=== PATIENT | male | born 1970 | race Two or more races ===

== ENCOUNTER → 2020-10-16 14:12 | Outpatient (BNVA) | payer OTHER, SELFPAY | PROVIDERS: PCP Internal Medicine; Visit Provider Physician Assistant | DX: E66.9 Obesity, unspecified (principal) | CPT/HCPCS: 99202 ==

== ENCOUNTER 2021-09-19 12:59 | Emergency (ER) | payer OTHER, SELFPAY ==
--- NOTE | ~2021-09-19 | XR_ITS ---
EXAMINATION: XR CHEST CLINICAL INFORMATION: Cough. COMPARISON: None TECHNIQUE: 2 views of the chest were obtained. FINDINGS: No significant abnormality is noted involving the heart, lungs, mediastinum, bony thorax or soft tissues. XR/XR chest 2V IMPRESSION: No acute cardiopulmonary process.
[2021-09-19 13:07] VITALS: BP 153/93; PULSE 108; RESP 18; TEMP 36.3; O2SAT 97; BMI 79.6
--- NOTE | 2021-09-19 14:31 | ED_ITS ---
HPI - Asthma General Chief Complaint: Asthma Stated Complaint: ASTHMA Time Seen by Provider: 09/19/21 14:16 Source: patient Mode of arrival: ambulatory Limitations: no limitations History of Present Illness HPI Narrative: 51-year-old male with history of asthma here with complaints of cough, wheezing, headache, runny nose nasal congestion for the last week. Patient tells me he was seen at the walk-in center and given inhaler and allergy medication. He tells me he has been continuing to do this but having continued symptoms. He has had uses nebulizer machine at home last few days. His last use was 11:00 o'clock this morning. He denies any history of hospitalizations or intubations for asthma. He denies any fevers, chills, difficulty breathing, chest pain. Related Data Home Medications Medication Instructions Recorded Confirmed albuterol sulfate mg INHALATION Q4H PRN 10/16/20 10/16/20 albuterol sulfate 90 mcg/actuation 2 puff INHALATION Q4H PRN 10/16/20 10/16/20 aerosol inhaler Previous Rx's Medication Instructions Recorded azithromycin 250 mg tablet See Rx Instructions .ROUTE 09/19/21 .COMPLEX #6 tab prednisone 20 mg tablet 40 mg PO DAILY 5 Days #10 tab 09/19/21 Allergies Allergy/AdvReac Type Severity Reaction Status Date / Time No Known Allergies Allergy Verified 10/16/20 14:34 [No Known Allergies*] Review of Systems Review of Systems: Yes all other systems are reviewed and are negative Constitutional: Constitutional: Reports no additional constitutional complaints, Denies body ache(s), Denies chills, Denies fever(s), Denies headache(s) and Denies weakness Eyes: Eyes: Reports no additional eye complaints and Denies change in vision ENT: Reports system reviewed and no additional complaints, except as documented, Denies dizziness, Denies headache(s), Reports nasal congestion, Reports nasal discharge and Denies neck pain Cardiovascular: Cardiovascular: Reports no additional cardiovascular complaints, Denies chest pain, Denies leg edema and Denies dyspnea Respiratory: Respiratory: Reports no additional respiratory complaints, Reports cough, Denies dyspnea and Reports wheezing Gastrointestinal: Gastrointestinal: Reports no additional gastrointestinal complaints, Denies abdominal pain, Denies diarrhea, Denies nausea and Denies vomiting Genitourinary: Genitourinary: Denies urinary incontinence Musculoskeletal: Musculoskeletal: Reports no additional musculoskeletal complaints, Denies back pain, Denies arthralgias, Denies joint swelling, Denies neck pain, Denies numbness and Denies tingling Integumentary/Breasts: Skin/Breast: Reports system reviewed and no additional complaints, except as docu and Denies rash Neurologic: Reports system reviewed and no additional complaints, except as documented, Denies Abnormal speech present, Denies dizziness, Denies headache(s), Denies numbness, Denies tingling and Denies weakness Allergic/Immunologic: Allergic/Immunologic: Reports wheezing [facility] Past Medical History Attestation statement: The following information was validated with the patient. Source: old records reviewed and nursing notes reviewed Medical History Asthma H/O back injury Obesity (BMI 35.0-39.9 without comorbidity) Surgical History Previous back surgery Family History Family History Father AIDS Mother Liver cancer Diabetes mellitus Sister Fibromyalgia Sister No problems noted. Brother Known medical problems Brother Diabetes mellitus Liver problem Daughter No problems noted. Son No problems noted. Son No problems noted. Social History Social History Alcohol intake: never Advance Directives: Yes Advance Directives Information Provided: Yes Advance Directives on File: No Physical Exam Vital Signs: Vital Signs: Last Vital Signs Temp 97.4 F 09/19/21 13:07 Pulse 104 H 09/19/21 14:48 Resp 20 09/19/21 14:48 BP 153/93 H 09/19/21 13:07 Pulse Ox 97 09/19/21 13:07 BMI result Body Mass Index 79.6 Const: General: cooperative, healthy appearing, comfortable and no acute distress Orientation/consciousness: patient oriented x3 Limitations: no limitations HENMT: Head: Yes normal to inspection Ears: hearing grossly normal bilaterally and TM's normal bilaterally General nose exam: Normal external nose present Face and sinus: Yes normal facial exam Mouth: Normal oral and palatal mucosa present Throat: Yes posterior oropharynx normal, Yes tonsils normal and Yes uvula midline Eyes: General: appearance normal, both eyes and all related structures Pupils: Equal, round and reactive pupils present Neck: Neck: Yes normal visual inspection, Yes full ROM and Yes no lymphadenopathy Chest: Chest palpation & inspection: normal inspection of the chest Resp: Other: Mild expiratory wheezing Prolonged expiration Frequent bronchospastic cough noted. Effort & Inspection: normal respiratory effort Cardio: Rate: regular rate Rhythm: regular rhythm Peripheral pulses: Peripheral pulses 2+ throughout GI: Inspection: Yes normal to inspection Palpation (GI): Soft to palpation and nontender Auscultation: normal bowel sounds Back/Spine/Pelvis: Thoracic/Lumbar Spine: thoracic and lumbar spine normal to inspection Skin: General skin exam: no rashes or lesions noted Neuro: General: patient oriented x3, no focal motor deficits and normal sensation to monofilament Cranial nerves: Yes Equal, round and reactive pupils present Cognition (Neuro): normal cognition Speech: No Abnormal speech present Gait exam (Neuro): Normal gait present Motor exam (neuro): 5/5 motor strength present throughout Extrem: General: Yes normal to inspection Course Course Course Narrative: [age] year old male here with complaints of cough, wheezing, nasal congestion and runny nose last week unrelieved with home albuterol MDI and nebulizer machine. On arrival patient is stable vital signs. He has some mild expiratory wheezing, prolonged expiration is and a frequent bronchospastic cough. Exam otherwise is benign. Check chest x-ray, COVID screen. Will give DuoNeb and p.o. prednisone reassessed 1540-COVID screen is positive. Chest x-ray shows no acute finding. Due to complaints of wheezing with history of asthma will treat with course of prednisone. Patient also reporting productive cough with green sputum so consider underlying bronchitis. Reviewed worrisome signs and symptoms of when to return to the emergency department. Comfortable discharge home. [facility] - Asthma Medical Records Attestation: I reviewed the patient's medical records. Lab Data Attestation: I reviewed the patient's lab results. Labs: Lab Results 09/19/21 Range/Units 15:20 COVID-19 (KRISTEN) Positive A (Negative) COVID-19 Clin Com See Note Imaging Data Chest x-ray: Attestation: I personally reviewed and interpreted this imaging study as follows: Radiologist's impression: [address] [address] XRay Report Signed Patient: Smith Cummings JR MR#: [id number] : 1970 Acct:[id number] Age/Sex: 51 / M ADM Date: 09/19/21 Loc: HO.ED Attending Dr: Ordering Physician: Trish Regalado NP Date of Service: 09/19/21 Procedure(s): XR chest 2V Accession Number(s): [id number] cc: Trish Regalado NP~ EXAMINATION: XR CHEST CLINICAL INFORMATION: Cough. COMPARISON: None TECHNIQUE: 2 views of the chest were obtained. FINDINGS: No significant abnormality is noted involving the heart, lungs, mediastinum, bony thorax or soft tissues. XR/XR chest 2V IMPRESSION: No acute cardiopulmonary process. Discharge Plan Discharge Clinical Impression: Asthma with acute exacerbation, COVID-19 Patient Disposition: Home, Self-Care Instructions: Asthma (ED), COVID-19 (Coronavirus Disease 2019) (ED) Additional Instructions: COVID test +. Quarentine for 10 days Motrin/tylenol for pain or fever as needed Increase fluids, rest Prescriptions: New prednisone 20 mg tablet 40 mg PO DAILY 5 Days Qty: 10 RF: 0 azithromycin 250 mg tablet See Rx Instructions .ROUTE .COMPLEX Qty: 6 RF: 0 No Action albuterol sulfate 90 mcg/actuation HFA aerosol inhaler 2 puff inhalation Q4H PRN (Reason: wheezing) RF: 0 albuterol sulfate 2.5 mg /3 mL (0.083 %) solution for nebulization inhalation Q4H PRN (Reason: wheezing) RF: 0 Referrals: Renato Ramsay MD [Primary Care Provider] - 2 days
[2021-09-19] MEDS: Albuterol/Iprat 2.5/0.5MG 3 ML AMPUL.NEB INHALE (14:43)
[2021-09-19] MEDS: predniSONE 20 MG TABLET 60 MG PO (14:46)
[2021-09-19 14:48] VITALS: PULSE 104; RESP 20; O2SAT 95
[2021-09-19 15:48] LABS: COVID-19 Test Positive (Negative)
== END 2021-09-19 16:09 | disposition home or self-care (01) ==
PROVIDERS: Nurse Practitioner Family; Emergency Provider Emergency Medicine; PCP Internal Medicine
DX: U07.1 COVID-19 (principal); J45.901 Unspecified asthma with (acute) exacerbation
CPT/HCPCS: 36415; 71046; 87635; 94640; 99283; 99284

== ENCOUNTER 2021-12-09 11:52 | Emergency (ER) | payer OTHER, SELFPAY ==
--- NOTE | ~2021-12-09 | XR_ITS ---
EXAMINATION: XR CHEST CLINICAL INFORMATION: Cough and SOB. COMPARISON: None TECHNIQUE: 2 views of the chest were obtained. FINDINGS: No significant abnormality is noted involving the heart, lungs, mediastinum, bony thorax or soft tissues. XR/XR chest 2V IMPRESSION: Unremarkable chest examination.
[2021-12-09 12:58] VITALS: BP 157/93; PULSE 97; RESP 16; TEMP 36.2; O2SAT 96; BMI 36.1
[2021-12-09 13:26] LABS: COVID-19 Test Negative (Negative); IDNOW Serial# 55D5AD1C
--- NOTE | 2021-12-09 14:26 | PC.NURSE ---
Pt reports increase in asthma exacerbations, states he uses an albuterol inhaler and neb. Has not recently used his neb, last inhaler use yesterday. Pt reports history of increasing asthma exacerbations as the weather changes. LS CTA bilaterally, pt speaking in full sentences, skin wd, resp reg and even, no s/sx resp distress at this time, spo2 96% on room air. Denies any recent URI. Fully vaccinated. Awaiting primary eval.
[2021-12-09 14:38] VITALS: BP 126/76; PULSE 88; RESP 17; O2SAT 96
--- NOTE | 2021-12-09 14:43 | PC.NURSE ---
pt a&ox3, vss, NRS on monitor, lungs sounds are clear, no crackles/wheezing/rhonchi, pt has a hx of asthma - worsens with weather changes/allergens, similar sx w asthma exacerbation prior, no sob/difficulty breathing noted in room, pt speaking in full sentences. pt denies pain, will continue to monitor.
--- NOTE | 2021-12-09 14:55 | ECG_ITS ---
Test Reason : SOB Blood Pressure : / mmHG Vent. Rate : 093 BPM Atrial Rate : 093 BPM P-R Int : 170 ms QRS Dur : 102 ms QT Int : 342 ms P-R-T Axes : 043 -04 008 degrees QTc Int : 425 ms Normal sinus rhythm with sinus arrhythmia Normal ECG When compared with ECG of 28-SEP-2018 12:09, No significant change was found Referred By: Ny Underwood Electronically Signed By:Nemesio Prasad
[2021-12-09] MEDS: Albuterol/Iprat 2.5/0.5MG 3 ML AMPUL.NEB INHALE (15:06)
[2021-12-09 15:07] VITALS: PULSE 88; RESP 20; O2SAT 96
[2021-12-09 15:26] LABS: MANUAL DIFF FLAG NO
[2021-12-09 15:28] LABS: Basophils Percent Auto 0.4 % (0-2); Eosinophils Absolute Auto 0.1 X10*3/uL (0.0-0.4); Eosinophils Percent Auto 0.8 % (0-4); Hematocrit 47.1 % (42.0-52.0); Imm Gran Abs Auto 0.02 X10*3/uL (0.00-0.03); Imm Gran Pct Auto 0.3 % (0.0-0.4); Lymphocytes Absolute Auto 1.9 X10*3/uL (1.2-4.9); Lymphocytes Percent Auto 26.1 % (20-40); Mean Corpuscular Hemoglobin 29.8 pg (27.0-33.0); Mean Corpuscular Volume 87.7 fL (80.0-98.0); Mean Platelet Volume 9.9 fL (9.4-12.4); Monocytes Absolute Auto 0.8 X10*3/uL (0.1-1.2); Monocytes Percent Auto 10.5 % (2-11); Neutrophils Absolute Auto 4.4 x10*3/uL (2.0-8.3); Neutrophils Percent Auto 61.9 % (45-73); Platelet Count 177 X10*3/uL (160-400); Red Blood Count 5.37 X10*6/uL (4.60-5.80); Red Cell Distribution Width 12.2 % (11.0-16.0); White Blood Count 7.1 X10*3/uL (4.8-10.8)
[2021-12-09 15:38] LABS: D Dimer High Sensitivity 188 NG/ML
[2021-12-09 15:42] LABS: Alanine Aminotransferase 71 U/L (0-40); Albumin Level 4.7 g/dL (3.5-5.0); Alkaline Phosphatase 70 U/L (39-117); Anion Gap 10 (12-20); Aspartate Amino Transferase 49 U/L (5-37); Bilirubin Direct 0.3 mg/dL (0.0-0.5); Bilirubin Total 0.9 mg/dL (0.0-1.0); Blood Urea Nitrogen 14 mg/dL (9-16); Calcium 9.6 mg/dL (8.4-10.2); Carbon Dioxide 30 mmol/L (22-29); Chloride 103 mmol/L (96-108); Creatinine Clr Calc Pharmacy 108.8; Estimated Glomerular Filt Rate > 60; Glucose Random 121 mg/dL (60-115); Sodium 139 mmol/L (135-145); Total Protein 7.6 g/dL (6.5-8.0)
[2021-12-09 15:49] LABS: B Type Natriuretic Peptide < 10 pg/mL (<100); Troponin-I High Sensitivity < 3.5 ng/L (<3.5-35.0)
--- NOTE | 2021-12-09 16:28 | ED_ITS ---
HPI - SOB/Dyspnea General Chief Complaint: Dyspnea Stated Complaint: asthma/headaches Time Seen by Provider: 12/09/21 14:54 Source: patient Mode of arrival: ambulatory History of Present Illness HPI Narrative: 51-year-old male with past medical history of asthma presenting to the ED complaining of worsening dry cough, SOB, substernal chest discomfort, and right side pain since yesterday. Reports side/back pain typical of asthma exacerb ations, worse with movement and deep breathing. Denies fever, abdominal pain, nausea/vomiting, edema, history of clots, cigarette smoking, recent travel, COVID-19 exposure MD elicited complaint: shortness of breath, cough, pain with inspiration, chest pain and asthma attack Related Data Home Medications Medication Instructions Recorded Confirmed albuterol sulfate mg INHALATION Q4H PRN 10/16/20 10/16/20 albuterol sulfate 90 mcg/actuation 2 puff INHALATION Q4H PRN 10/16/20 10/16/20 aerosol inhaler Previous Rx's Medication Instructions Recorded azithromycin 250 mg tablet See Rx Instructions .ROUTE 09/19/21 .COMPLEX #6 tab prednisone 20 mg tablet 40 mg PO DAILY 5 Days #10 tab 09/19/21 albuterol sulfate 2.5 mg/0.5 mL 5 mg INHALATION Q4H PRN #30 ea 12/09/21 solution for nebulization albuterol sulfate 90 mcg/actuation 2 puff INHALATION Q4-6H PRN #6.7 g 12/09/21 aerosol inhaler prednisone 20 mg tablet 40 mg PO DAILY 5 Days #10 tab 12/09/21 Allergies Allergy/AdvReac Type Severity Reaction Status Date / Time No Known Allergies Allergy Verified 10/16/20 14:34 [No Known Allergies*] Review of Systems Review of Systems: Constitutional: No Fever, No Chills, No Fatigue, No Malaise ENT/Mouth: No Ear Pain, No Nasal Congestion, No sore throat, No Rhinorrhea, No Swallowing Difficulty Eyes: No Eye Pain, No Swelling, No Redness Cardiovascular: + Chest Pain, + SOB, No Dyspnea on Exertion, No Orthopnea, No Edema, No Palpitations Respiratory: No Cough, No Sputum, No Wheezing, No Smoke Exposure, No Dyspnea Gastrointestinal: No Nausea, No Vomiting, No Diarrhea, No Constipation, No Abdominal pain Genitourinary: No Dysuria, No Urinary Frequency, No Hematuria, No Urgency, No Flank Pain, No Urinary Flow Changes, No Hesitancy Musculoskeletal: +back/side pain, No Myalgias, No Joint Swelling Skin: No Skin Lesions, No rash Neuro: No Weakness, No Numbness, No Paresthesias, No Headache Yes all other systems are reviewed and are negative [facility]LY [facility] Past Medical History Attestation statement: The following information was validated with the patient. Medical History Asthma H/O back injury Obesity (BMI 35.0-39.9 without comorbidity) Surgical History Previous back surgery Family History Family History Father AIDS Mother Liver cancer Diabetes mellitus Sister Fibromyalgia Sister No problems noted. Brother Known medical problems Brother Diabetes mellitus Liver problem Daughter No problems noted. Son No problems noted. Son No problems noted. Social History Social History Alcohol intake: never Patient Tobacco Use Status: Never used Tobacco Use of substances other than those prescribed or required for medical reasons: No Advance Directives: No Advance Directives Information Provided: No Physical Exam Vital Signs: Vital Signs: Last Vital Signs Temp 97.1 F 12/09/21 12:58 Pulse 88 12/09/21 15:07 Resp 20 12/09/21 15:07 BP 126/76 12/09/21 14:38 Pulse Ox 96 12/09/21 14:38 BMI result Body Mass Index 36.1 Const: General: cooperative, healthy appearing and no acute distress Orientation/consciousness: patient oriented x3 Limitations: no limitations HENMT: Head: Yes normal to inspection Ears: hearing grossly normal bilaterally General nose exam: Normal external nose present Face and sinus: Yes normal facial exam Eyes: General: appearance normal, both eyes and all related structures EOM: EOMs intact bilaterally Neck: Neck: Yes normal visual inspection and Yes no meningeal signs Chest: Chest palpation & inspection: normal inspection of the chest, no crepitus and tenderness (right posterior-lateral chest wall reproducing subjec tive complaint) Resp: Effort & Inspection: normal respiratory effort, no respiratory distress and not tachypneic Auscultation: wheezes expiratory wheezes (mild) and lung sounds not diminished Cardio: Rate: regular rate Heart sounds: S1 normal heart sound present and S2 normal heart sound present GI: Inspection: Yes normal to inspection Palpation (GI): Soft to palpation, nontender, no guarding and not rigid : General: Yes no CVA tenderness Back/Spine/Pelvis: Back: no CVA tenderness Skin: Rashes: no rashes Wounds: no wounds Neuro: General: patient oriented x3 and no meningeal signs Gait exam (Neuro): Normal gait present Extrem: General: Yes normal to inspection, Yes no pedal edema and Yes no calf tenderness Course Course Course Narrative: XR chest 2V IMPRESSION: Unremarkable chest examination. -1655--no leukocytosis. AST/ALT mildly elevated. Troponin negative. BNP negative. D-dimer WNL. Labs otherwise unremarkable -COVID-19 negative -on re-evaluation patient reports symptomatic improvement after DuoNeb. Lungs CTA. Patient given dose of p.o. prednisone in the ED, plan to DC with short course prednisone, refills of albuterol and neb albuterol. Discussed with patient worrisome signs and symptoms and strict return precautions and need close follow-up with PCP. MDM - SOB/Dyspnea MDM Narrative Medical decision making narrative: 51-year-old male with past medical history of asthma presenting to the ED complaining of worsening dry cough, SOB, substernal chest discomfort, and right side pain since yesterday. Differential Diagnosis Differential diagnosis: Likely acute exacerbation of chronic obstructive airways disease, pneumonia, asthma with exacerbation and pulmonary embolism Medical Records Attestation: I reviewed the patient's medical records. Lab Data Attestation: I reviewed the patient's lab results. Result diagrams: 12/09/21 15:19 12/09/21 15:19 Labs: Lab Results 12/09/21 12/09/21 12/09/21 Range/Units 13:06 15:19 15:19 WBC 7.1 (4.8-10.8) X10*3/uL RBC 5.37 (4.60-5.80) X10*6/uL Hgb 16.0 (14.0-18.0) g/dl Hct 47.1 (42.0-52.0) % MCV 87.7 (80.0-98.0) fL MCH 29.8 (27.0-33.0) pg MCHC 34.0 (31.0-36.0) g/dl RDW 12.2 (11.0-16.0) % Plt Count 177 (160-400) X10*3/uL MPV 9.9 (9.4-12.4) fL Immature Gran % (Auto) 0.3 (0.0-0.4) % Neut % (Auto) 61.9 (45-73) % Lymph % (Auto) 26.1 (20-40) % Cowley % (Auto) 10.5 (2-11) % Eos % (Auto) 0.8 (0-4) % Baso % (Auto) 0.4 (0-2) % Lymph # (Auto) 1.9 (1.2-4.9) X10*3/uL Cowley # (Auto) 0.8 (0.1-1.2) X10*3/uL Eos # (Auto) 0.1 (0.0-0.4) X10*3/uL Baso # (Auto) 0.0 (0.0-0.2) X10*3/uL Abs Immat Gran (auto) 0.02 (0.00-0.03) X10*3/uL Absolute Neuts (auto) 4.4 (2.0-8.3) x10*3/uL Absolute Nucleated RBC 0.000 (0.0-0.012) X10*3/uL Nucleated RBC % (auto) 0.0 (0.0-0.2) /100WBC D-Dimer High Sensitivty 188 NG/ML Sodium (135-145) mmol/L Potassium (3.3-5.1) mmol/L Chloride (96-108) mmol/L Carbon Dioxide (22-29) mmol/L Anion Gap (12-20) BUN (9-16) mg/dL Creatinine (0.5-1.4) mg/dL Estim Creat Clear Calc Estimated GFR Random Glucose (60-115) mg/dL Calcium (8.4-10.2) mg/dL Total Bilirubin (0.0-1.0) mg/dL Direct Bilirubin (0.0-0.5) mg/dL AST (5-37) U/L ALT (0-40) U/L Alkaline Phosphatase (39-117) U/L Troponin I High Sens (<3.5-35.0) ng/L B-Natriuretic Peptide (<100) pg/mL Total Protein (6.5-8.0) g/dL Albumin (3.5-5.0) g/dL COVID-19 (KRISTEN) Negative (Negative) COVID-19 Clin Com See Note 12/09/21 12/09/21 Range/Units 15:19 15:19 WBC (4.8-10.8) X10*3/uL RBC (4.60-5.80) X10*6/uL Hgb (14.0-18.0) g/dl Hct (42.0-52.0) % MCV (80.0-98.0) fL MCH (27.0-33.0) pg MCHC (31.0-36.0) g/dl RDW (11.0-16.0) % Plt Count (160-400) X10*3/uL MPV (9.4-12.4) fL Immature Gran % (Auto) (0.0-0.4) % Neut % (Auto) (45-73) % Lymph % (Auto) (20-40) % Cowley % (Auto) (2-11) % Eos % (Auto) (0-4) % Baso % (Auto) (0-2) % Lymph # (Auto) (1.2-4.9) X10*3/uL Cowley # (Auto) (0.1-1.2) X10*3/uL Eos # (Auto) (0.0-0.4) X10*3/uL Baso # (Auto) (0.0-0.2) X10*3/uL Abs Immat Gran (auto) (0.00-0.03) X10*3/uL Absolute Neuts (auto) (2.0-8.3) x10*3/uL Absolute Nucleated RBC (0.0-0.012) X10*3/uL Nucleated RBC % (auto) (0.0-0.2) /100WBC D-Dimer High Sensitivty NG/ML Sodium 139 (135-145) mmol/L Potassium 4.0 (3.3-5.1) mmol/L Chloride 103 (96-108) mmol/L Carbon Dioxide 30 H (22-29) mmol/L Anion Gap 10 L (12-20) BUN 14 (9-16) mg/dL Creatinine 1.23 (0.5-1.4) mg/dL Estim Creat Clear Calc 108.8 Estimated GFR > 60 Random Glucose 121 H (60-115) mg/dL Calcium 9.6 (8.4-10.2) mg/dL Total Bilirubin 0.9 (0.0-1.0) mg/dL Direct Bilirubin 0.3 (0.0-0.5) mg/dL AST 49 H (5-37) U/L ALT 71 H (0-40) U/L Alkaline Phosphatase 70 (39-117) U/L Troponin I High Sens < 3.5 (<3.5-35.0) ng/L B-Natriuretic Peptide < 10 (<100) pg/mL Total Protein 7.6 (6.5-8.0) g/dL Albumin 4.7 (3.5-5.0) g/dL COVID-19 (KRISTEN) (Negative) COVID-19 Clin Com ECG Data Attestation: I personally reviewed and interpreted this ECG as follows: ECG interpretation date: 12/09/21 ECG interpretation time: 15:14 Interpretation: EKG normal sinus rhythm with sinus arrhythmia. Rate of 93. Pr interval 170. QRS 102. QTC 425. No STEMI Discharge Plan Discharge Clinical Impression: Asthma with exacerbation Patient Disposition: Home, Self-Care Instructions: Asthma (DC) Additional Instructions: Your blood work and chest x-ray were reassuring. Her having an asthma exacerba tion. Continue to use her nebulizer, & inhalers at home You tested negative for COVID-19. In addition take prednisone which is a steroid. Please follow-up with your doctor. If your symptoms persist or worsen, you have constant or worsening shortness of breath, fever, or cough please return to the ED Prescriptions: New prednisone 20 mg tablet 40 mg PO DAILY 5 Days Qty: 10 0RF albuterol sulfate 90 mcg/actuation HFA aerosol inhaler 2 puff inhalation Q4-6H PRN (Reason: shortness of breath or wheezing) Qty: 6.7 0RF albuterol sulfate 2.5 mg/0.5 mL solution for nebulization 5 mg inhalation Q4H PRN (Reason: shortness of breath or wheezing) Qty: 30 0RF No Action prednisone 20 mg tablet 40 mg PO DAILY 5 Days Qty: 10 0RF azithromycin 250 mg tablet See Rx Instructions .ROUTE .COMPLEX Qty: 6 0RF Rx Instructions: For 250 mg dose pack: take 500 mg today (day 1), then 250 mg for 4 days (days 2-5) albuterol sulfate 90 mcg/actuation HFA aerosol inhaler 2 puff inhalation Q4H PRN (Reason: wheezing) 0RF albuterol sulfate 2.5 mg /3 mL (0.083 %) solution for nebulization inhalation Q4H PRN (Reason: wheezing) 0RF Referrals: Renato Ramsay III, MD [Primary Care Provider] - 2 days
[2021-12-09] MEDS: predniSONE 20 MG TABLET 40 MG PO (16:53)
== END 2021-12-09 17:03 | disposition home or self-care (01) ==
PROVIDERS: Physician Assistant; Emergency Provider Emergency Medicine; PCP Internal Medicine
DX: J45.901 Unspecified asthma with (acute) exacerbation (principal); R06.02 Shortness of breath; Z20.822 Contact with and (suspected) exposure to COVID-19
CPT/HCPCS: 36415; 71046; 80048; 80076; 83880; 84484; 85025; 85379; 87635; 93005; 94640; 99284

== ENCOUNTER 2022-04-23 11:14 | Emergency (ER) | payer OTHER, SELFPAY ==
--- NOTE | ~2022-04-23 | US_ITS ---
EXAMINATION: US VENOUS ULTRASOUND WITH DOPPLER LOWER EXTREMITY, RIGHT CLINICAL INFORMATION: Atraumatic right posterior ankle pain and swelling. Question Achilles tendon rupture. COMPARISON: None TECHNIQUE: Ultrasound of the deep veins is performed from the hip to the calf with compression sonography and color and pulse Doppler assessment. Spectral analysis with color-flow imaging is performed. FINDINGS: There is normal venous compression and respiratory variation and augmented flow. The visualized common femoral vein, superficial femoral vein, profunda femoral vein, popliteal vein, and the trifurcation region shows no evidence of deep venous thrombosis. Visualized posterior tibial and peroneal veins are patent. Targeted scanning of the Achilles tendon demonstrates a hypoechoic tissue along the deep margin of the tendon and a small 5 mm anechoic fluid collection. No full-thickness tendon rupture identified in the imaged field of view. The entirety of the tendon was not fully imaged. US/US extremity nonvascular huff IMPRESSION: 1. No DVT demonstrated in the right lower extremity. 2. No evidence of full-thickness defect/rupture of the Achilles tendon. There is edematous tissue along the deep margin of the image tendon which may represent a myotendinous partial tear. Consider ankle MRI for more complete assessment as the entirety of the tendon was not fully imaged.
--- NOTE | ~2022-04-23 | US_ITS ---
EXAMINATION: US VENOUS ULTRASOUND WITH DOPPLER LOWER EXTREMITY, RIGHT CLINICAL INFORMATION: Atraumatic right posterior ankle pain and swelling. Question Achilles tendon rupture. COMPARISON: None TECHNIQUE: Ultrasound of the deep veins is performed from the hip to the calf with compression sonography and color and pulse Doppler assessment. Spectral analysis with color-flow imaging is performed. FINDINGS: There is normal venous compression and respiratory variation and augmented flow. The visualized common femoral vein, superficial femoral vein, profunda femoral vein, popliteal vein, and the trifurcation region shows no evidence of deep venous thrombosis. Visualized posterior tibial and peroneal veins are patent. Targeted scanning of the Achilles tendon demonstrates a hypoechoic tissue along the deep margin of the tendon and a small 5 mm anechoic fluid collection. No full-thickness tendon rupture identified in the imaged field of view. The entirety of the tendon was not fully imaged. US/US venous duplex LE RT IMPRESSION: 1. No DVT demonstrated in the right lower extremity. 2. No evidence of full-thickness defect/rupture of the Achilles tendon. There is edematous tissue along the deep margin of the image tendon which may represent a myotendinous partial tear. Consider ankle MRI for more complete assessment as the entirety of the tendon was not fully imaged.
--- NOTE | ~2022-04-23 | XR_ITS ---
EXAMINATION: XR ANKLE, RIGHT CLINICAL INFORMATION: Atraumatic right posterior ankle pain COMPARISON: None TECHNIQUE: AP, lateral, and mortise views of the right ankle. FINDINGS: No fracture or dislocation. Ankle mortise is congruent and intact. No ankle joint effusion. Ankle and subtalar joint spaces are maintained. Mild proliferative bone at the tip of the medial malleolus. Prominent posterior calcaneal spur at the Achilles tendon insertion. No appreciable thickening of the Achilles tendon or infiltration of Kager's fat. XR/XR ankle RT min 3V IMPRESSION: 1. No acute osseous injury. 2. Preserved ankle joint space. 3. Prominent posterior calcaneal enthesophyte at the Achilles tendon insertion.
[2022-04-23 12:41] VITALS: BP 125/78; PULSE 81; RESP 18; TEMP 37; O2SAT 100; BMI 36.1
[2022-04-23] MEDS: NaPROXEN 500 MG TABLET PO (15:34)
--- NOTE | 2022-04-23 15:54 | ED_ITS ---
HPI - Extremity Problem General Chief complaint: Extremity Problem Stated complaint: Difficult moving R foot, pain Time Seen by Provider: 04/23/22 14:17 Source: patient Mode of arrival: ambulatory Limitations: no limitations History of Present Illness HPI Narrative: 51-year-old male presenting to the ED with complaints of right posterior ankle pain for the past 2 days worse today. Reports that he had a history of plantar fasciitis on the left side although the pain felt different was located mostly in the heel. He denies any heel pain/similar symptoms to his plantar fasciitis today. He denies any fevers, chills, dizziness, headaches, chest pain or shortness of breath, dyspnea on exertion, orthopnea, palpitations, paresthesias, weight gain, abdominal distension, calf tenderness, recent falls or trauma, recent immobilization, history of cancer, recent surgery, history of DVT or PE, history of PVD disease, any estrogen usage, hx of gout, or any other symptoms complaints concerns or injuries at this time. MD Complaint: joint pain Onset (ago): day(s) (2) Pain Consistency: constant Location: right and other (ankle) Quality: aching and constant Radiation: none Relieving factors: nothing Exacerbating factors: range of motion, weight bearing and palpation Associated symptoms: denies other symptoms Related Data Home Medications Medication Instructions Recorded Confirmed albuterol sulfate mg inhalation Q4H PRN wheezing 10/16/20 10/16/20 albuterol sulfate 90 mcg/actuation 2 puff inhalation Q4H PRN wheezing 10/16/20 10/16/20 aerosol inhaler Previous Rx's Medication Instructions Recorded azithromycin 250 mg tablet See Rx Instructions PO .COMPLEX #6 09/19/21 tabs prednisone 20 mg tablet 40 mg PO DAILY 5 days #10 tabs 09/19/21 albuterol sulfate 2.5 mg/0.5 mL 5 mg inhalation Q4H PRN shortness 12/09/21 solution for nebulization of breath or wheezing #30 ea albuterol sulfate 90 mcg/actuation 2 puff inhalation Q4-6H PRN 12/09/21 aerosol inhaler shortness of breath or wheezing #6.7 grams prednisone 20 mg tablet 40 mg PO DAILY 5 days #10 tabs 12/09/21 naproxen 500 mg tablet 500 mg PO BID PRN pain #10 tabs 04/23/22 oxycodone 5 mg tablet 5 mg PO Q6H PRN pain #14 tabs 04/23/22 Allergies Allergy/AdvReac Type Severity Reaction Status Date / Time No Known Allergies Allergy Verified 10/16/20 14:34 [No Known Allergies*] Review of Systems Review of Systems: Constitutional : No Weight loss, No Fever, No Chills, No Night Sweats, No Fatigue, No Malaise ENT/Mouth : No Hearing loss, No Ear Pain, No Nasal Congestion, No Sinus Pain, No Hoarseness, No sore throat, No Rhinorrhea, No Swallowing Difficulty Eyes: No Eye Pain, No Swelling, No Redness, No Foreign Body, No Discharge, No Vision Changes Cardiovascular : No Chest Pain, No SOB, No Dyspnea on Exertion, No Orthopnea, No Edema, No Palpitations Respiratory : No Cough, No Sputum, No Wheezing, No Smoke Exposure, No Dyspnea Gastrointestinal : No Nausea, No Vomiting, No Diarrhea, No Constipation, No abdominal Pain, No Hematochezia, No Melena Genitourinary : no irregular bleeding, No Dysuria, No Urinary Frequency, No Hematuria, No Urinary Incontinence, No Urgency, No Flank Pain, No Urinary Flow Changes, No Hesitancy Musculoskeletal : + right ankle/foot pain posterior, No Myalgias, No Joint Swelling Skin : No Skin Lesions, No rash Neuro : No Weakness, No Numbness, No Paresthesias, No Loss of Consciousness, No Dizziness, No Headache Psych : No Anxiety/Panic, No Depression, No SI/HI/AH/VH, No Social Issues, Heme/Lymph: No Bruising, No Bleeding,No Lymphadenopathy Endocrine : No Polyuria, No Polydipsia, No Temperature Intolerance Yes all other systems are reviewed and are negative FOR[facility]LY [facility] Past Medical History Attestation statement: The following information was validated with the patient. Source: old records reviewed and nursing notes reviewed Medical History Asthma H/O back injury Obesity (BMI 35.0-39.9 without comorbidity) Surgical History Previous back surgery Family History Family History Father AIDS Mother Liver cancer Diabetes mellitus Sister Fibromyalgia Sister No problems noted. Brother Known medical problems Brother Diabetes mellitus Liver problem Daughter No problems noted. Son No problems noted. Son No problems noted. Social History Social History Alcohol intake: never Patient Tobacco Use Status: Never used Tobacco Advance Directives: Yes Advance Directives Information Provided: Yes Advance Directives on File: No Physical Exam Vital Signs: Vital Signs: Last Vital Signs Temp 98.8 F 04/23/22 16:00 Pulse 73 04/23/22 16:00 Resp 18 04/23/22 12:41 BP 149/96 H 04/23/22 16:00 Pulse Ox 98 04/23/22 16:00 O2 Del Method 04/23/22 16:00 BMI result Body Mass Index 36.1 vital signs have been reviewed as normal and appeared to be correct. Blood pressure normal Heart rate normal. Respiration rate normal. Temperature normal. Oxygen saturation normal. Appearance: Alert. Oriented X3. No acute distress. Head: Normal external exam. Normocephalic. Atraumatic. Eyes: PERRLA. EOMI. Conjunctiva and sclera normal. Eyelids normal. ENT: Pharynx normal. Uvula midline. Moist mucous membranes. Neck: Normal inspection. Neck supple. FROM. CVS: Normal heart rate and rhythm. Respiratory: No respiratory distress. Painless inspiration. Skin: Skin warm and dry. Normal skin color. Normal skin turgor. No rashes/lesions/lacerations noted. Extremities: Patient with moderate tenderness palpation to the right posterior aspect of the foot right over the Achilles tendon. Although negative Alvarado's test. Not consistent with Achilles tendon rupture. He does have right calf tenderness. And positive Homans sign. He has full range of motion of the right ankle no tenderness to palpation to the lateral or medial malleolus. No 5th metatarsal tenderness noted. No rashes are noted. No lower extremity edema noted. Otherwise all other extremities exhibit normal range of motion nonte nder. Neuro: Oriented X 3. No motor deficit. No sensory deficit. Reflexes normal. Normal steady gait. No focal neuro deficits noted. Vascular: + radial pulses/+ 2 distal pedal pulses/+2 dorsalis pedis b/l. Normal cap refill. No cyanosis noted to upper extremity nails and lower extremity toes nails. Course Course Course Narrative: 14:30pm - 51-year-old male presenting to the ED with complaints of right posterior ankle pain for the past 2 days worse today. Reports that he had a history of plantar fasciitis on the left side although the pain felt different was located mostly in the heel. He denies any heel pain/similar symptoms to his plantar fasciitis today. Will provide naproxen 500 mg. Obtain an x-ray of the right ankle and a venous duplex ultrasound of right lower extremity and ultrasound to evaluate the Achilles tendon and re-evaluate. Reevaluation(s) Reevaluation #1: X-ray revealed prominent posterior calcaneal enthesophyte at the Achilles tendon insertion. Otherwise no other acute processes only chronic changes. Venous duplex ultrasound of right lower extremity negative for DVT and they reported that there is no evidence of full-thickness defect/rupture of the Achilles tendon although there is edematous tissue along the deep margin of the image tendon which may represent a myotendinous partial tear. - therefore I discussed this case with Kathy dunne orthopedic PA and she r ecommended placing the patient in an ortho boot with follow-up with orthopedics and to return if any new or worsening symptoms. Patient understands agrees with this plan. Time: 16:36 MDM - Extremity (Nontraumatic) Medical Records Attestation: I reviewed the patient's medical records. Imaging Data Right ankle x-ray: Attestation: I personally reviewed and interpreted this imaging study as follows: Radiologist's impression: FINDINGS: No fracture or dislocation. Ankle mortise is congruent and intact. No ankle joint effusion. Ankle and subtalar joint spaces are maintained. Mild proliferative bone at the tip of the medial malleolus. Prominent posterior calcaneal spur at the Achilles tendon insertion. No appreciable thickening of the Achilles tendon or infiltration of Kager's fat.? XR/XR ankle RT min 3V IMPRESSION: ? 1. No acute osseous injury. 2. Preserved ankle joint space. 3. Prominent posterior calcaneal enthesophyte at the Achilles tendon insertion. Ultrasound extremity nonvascular of right lower extremity: Attestation: I personally reviewed and interpreted this imaging study as follows: Radiologist's impression: FINDINGS: There is normal venous compression and respiratory variation and augmented flow. The visualized common femoral vein, superficial femoral vein, profunda femoral vein, popliteal vein, and the trifurcation region shows no evidence of deep venous thrombosis. Visualized posterior tibial and peroneal veins are patent. Targeted scanning of the Achilles tendon demonstrates a hypoechoic tissue along the deep margin of the tendon and a small 5 mm anechoic fluid collection. No full-thickness tendon rupture identified in the imaged field of view. The entirety of the tendon was not fully imaged. US/US extremity nonvascular huff IMPRESSION: 1.? No DVT demonstrated in the right lower extremity. 2.? No evidence of full-thickness defect/rupture of the Achilles tendon. There is edematous tissue along the deep margin of the image tendon which may represent a myotendinous partial tear. Consider ankle MRI for more complete assessment as the entirety of the tendon was not fully imaged. Procedures Orthopedic Splinting/Casting Injury #1: Side: right Lower Extremity Immobilizer: boot orthosis and Robert wrap Discharge Plan Discharge Clinical Impression: Acute right ankle pain, Achilles tendinitis Patient Disposition: Home, Self-Care Instructions: Achilles Tendinitis (ED), Walking Boot (ED) Additional Instructions: You have a possible partial Achilles tendon rupture. Please use ortho boot as often as possible. Follow-up with orthopedics within the next few weeks for further evaluation treatment. Return if any new or worsening symptoms. Prescriptions: New naproxen 500 mg tablet 500 mg PO BID PRN (Reason: pain) Qty: 10 0RF oxycodone 5 mg tablet 5 mg PO Q6H PRN (Reason: pain) Qty: 14 0RF Rx Instructions: Partial Fill upon patient request. No Action prednisone 20 mg tablet 40 mg PO DAILY 5 Days Qty: 10 0RF albuterol sulfate 90 mcg/actuation HFA aerosol inhaler 2 puff inhalation Q4-6H PRN (Reason: shortness of breath or wheezing) Qty: 6.7 0RF albuterol sulfate 2.5 mg/0.5 mL solution for nebulization 5 mg inhalation Q4H PRN (Reason: shortness of breath or wheezing) Qty: 30 0RF prednisone 20 mg tablet 40 mg PO DAILY 5 Days Qty: 10 0RF azithromycin 250 mg tablet See Rx Instructions .ROUTE .COMPLEX Qty: 6 0RF Rx Instructions: For 250 mg dose pack: take 500 mg today (day 1), then 250 mg for 4 days (days 2-5) albuterol sulfate 90 mcg/actuation HFA aerosol inhaler 2 puff inhalation Q4H PRN (Reason: wheezing) albuterol sulfate 2.5 mg /3 mL (0.083 %) solution for nebulization inhalation Q4H PRN (Reason: wheezing) Referrals: Renato Ramsay III, MD [Primary Care Provider] - 1 week Onur Nagel MD [Physician] - 1 week (Call within 1 week to make a follow-up appointment within the next 1-2 weeks) Stand Alone Forms: Work/School Release
[2022-04-23 16:00] VITALS: BP 149/96; PULSE 73; TEMP 37.1; O2SAT 98
== END 2022-04-23 17:17 | disposition home or self-care (01) ==
PROVIDERS: Emergency Provider Emergency Medicine; PCP Internal Medicine
DX: M76.61 Achilles tendinitis, right leg (principal); M25.571 Pain in right ankle and joints of right foot; E66.9 Obesity, unspecified; Z68.36 Body mass index [BMI] 36.0-36.9, adult
CPT/HCPCS: 73610; 76882; 93971; 99283; 99284

== ENCOUNTER 2022-05-14 08:57 | Emergency (ER) | payer OTHER, SELFPAY ==
[2022-05-14 09:04] VITALS: BP 131/99; PULSE 85; RESP 18; TEMP 37; O2SAT 96; BMI 35.9
[2022-05-14 09:28] LABS: COVID-19 Test Positive (Negative); IDNOW Serial# 16C4AD1C
--- NOTE | 2022-05-14 09:35 | ED.URI ---
HPI - URI/Sore Throat General Chief Complaint: Upper Respiratory Symptoms Stated Complaint: possible covid Time Seen by Provider: 05/14/22 09:20 Source: patient Mode of arrival: ambulatory Limitations: no limitations History of Present Illness HPI Narrative: 51-year-old male with a past medical history of obesity and asthma currently on albuterol nebulizers at home reports he has not had to use it and COVID in 09/2021 presenting to the ED with complaints of chills, fatigue, malaise, nasal congestion/rhinorrhea, sore throat, sinus pressure pain and a dry cough that started this morning. He reports he is vaccinated to COVID. He denies any recent travel or sick contacts. He denies any measured fevers, dizziness, headaches, neck pain/stiffness, trouble swallowing or breathing, chest pain or shortness of breath, dyspnea on exertion, orthopnea, palpitations, paresthesias, wheezing, nausea/vomiting/diarrhea constipation, dysuria, hematuria, abnormal penile discharge, rashes or any other symptoms complaints or concerns at this time. MD elicited complaint: cough, sore throat, rhinorrhea, nasal congestion and sinus pain Onset (ago): day(s) (Started today) Consistency: constant Severity: mild Description of mucous: clear and watery Able to tolerate fluids by mouth: Yes Exacerbating factors: swallowing Relieving factors: nothing Associated symptoms: chills, myalgias, rhinorrhea, nasal congestion, sore throat and cough Treatments prior to arrival: none Related Data Home Medications Medication Instructions Recorded Confirmed albuterol sulfate 2.5 mg/3 mL mg inhalation Q4H PRN wheezing 10/16/20 10/16/20 (0.083 %) solution for nebulization albuterol sulfate 90 mcg/actuation 2 puff inhalation Q4H PRN wheezing 10/16/20 10/16/20 aerosol inhaler Previous Rx's Medication Instructions Recorded azithromycin 250 mg tablet See Rx Instructions PO .COMPLEX #6 09/19/21 tabs prednisone 20 mg tablet 40 mg PO DAILY 5 days #10 tabs 09/19/21 albuterol sulfate 2.5 mg/0.5 mL 5 mg inhalation Q4H PRN shortness 12/09/21 solution for nebulization of breath or wheezing #30 ea albuterol sulfate 90 mcg/actuation 2 puff inhalation Q4-6H PRN 12/09/21 aerosol inhaler shortness of breath or wheezing #6.7 grams prednisone 20 mg tablet 40 mg PO DAILY 5 days #10 tabs 12/09/21 naproxen 500 mg tablet 500 mg PO BID PRN pain #10 tabs 04/23/22 oxycodone 5 mg tablet 5 mg PO Q6H PRN pain #14 tabs 04/23/22 codeine 10 mg-guaifenesin 100 mg/5 5 ml PO Q6H PRN cold symptoms #120 05/14/22 mL oral liquid (Guaifenesin AC) mL nirmatrelvir 300 mg (150 mg See Rx Instructions PO .COMPLEX 05/14/22 x2)-ritonavir 100 mg tablet,dose #15 ea pack(EUA) (Paxlovid) prednisone 20 mg tablet 40 mg PO DAILY rash 5 days #10 tabs 05/14/22 Allergies Allergy/AdvReac Type Severity Reaction Status Date / Time No Known Allergies Allergy Verified 10/16/20 14:34 [No Known Allergies*] Review of Systems Review of Systems: Constitutional : + chills/fatigue/malaise, No Weight loss, No Fever, No Night Sweats ENT/Mouth : No Hearing loss, No Ear Pain, + Nasal Congestion, + Sinus Pain, No Hoarseness, + sore throat, + Rhinorrhea, No Swallowing Difficulty Eyes: No Eye Pain, No Swelling, No Redness, No Foreign Body, No Discharge, No Vision Changes Cardiovascular : No Chest Pain, No SOB, No Dyspnea on Exertion, No Orthopnea, No Edema, No Palpitations Respiratory : + Cough, No Sputum, No Wheezing, No Smoke Exposure, No Dyspnea Gastrointestinal : No Nausea, No Vomiting, No Diarrhea, No Constipation, No abdominal Pain, No Hematochezia, No Melena Genitourinary : no irregular bleeding, No Dysuria, No Urinary Frequency, No Hematuria, No Urinary Incontinence, No Urgency, No Flank Pain, No Urinary Flow Changes, No Hesitancy Musculoskeletal : No joint pain, + Myalgias, No Joint Swelling Skin : No Skin Lesions, No rash Neuro : No Weakness, No Numbness, No Paresthesias, No Loss of Consciousness, No Dizziness, No Headache Psych : No Anxiety/Panic, No Depression, No SI/HI/AH/VH, No Social Issues, Heme/Lymph: No Bruising, No Bleeding,No Lymphadenopathy Endocrine : No Polyuria, No Polydipsia, No Temperature Intolerance Yes all other systems are reviewed and are negative [facility] Past Medical History Attestation statement: The following information was validated with the patient. Source: old records reviewed and nursing notes reviewed Medical History Asthma H/O back injury Obesity (BMI 35.0-39.9 without comorbidity) Surgical History Previous back surgery Family History Family History Father AIDS Mother Liver cancer Diabetes mellitus Sister Fibromyalgia Sister No problems noted. Brother Known medical problems Brother Diabetes mellitus Liver problem Daughter No problems noted. Son No problems noted. Son No problems noted. Social History Social History Alcohol intake: never Patient Tobacco Use Status: Never used Tobacco Advance Directives: No Advance Directives Information Provided: No Physical Exam Vital Signs: Vital Signs: Last Vital Signs Temp 98.6 F 05/14/22 09:04 Pulse 85 05/14/22 09:04 Resp 18 05/14/22 09:04 BP 131/99 H 05/14/22 09:04 Pulse Ox 96 05/14/22 09:04 O2 Del Method 05/14/22 09:04 BMI result Body Mass Index 35.9 vital signs have been reviewed as normal and appeared to be correct. Blood pressure 131/99. Heart rate normal. Respiration rate normal. Temperature normal. Oxygen saturation normal. Appearance: Alert. Oriented X3. No acute distress. Head: Normal external exam. Normocephalic. Atraumatic. Eyes: PERRLA. EOMI. Conjunctiva and sclera normal. Eyelids normal. ENT: EAC normal. TM's Normal. Tonsils/posterior pharynx erythematous although no exudate is noted. Soft and hard palate are within normal limits. Uvula midline. Moist mucous membranes. No lesions/ulcerations or masses noted on the tongue. Normal voice. No trismus noted. No drooling noted. No muffled voice noted. Neck: Normal inspection. Neck supple. FROM. No adenopathy. Thyroid Normal. No meningeal signs. CVS: Normal heart rate and rhythm. Heart sound normal. Pulses normal throughout. No murmurs/rales/gallops. Respiratory: No respiratory distress. Painless inspiration. Breath sounds normal. No wheezes/rales/rhonchi noted. Chest nontender. No accessory muscle usage noted or decreased air movement noted. Abdomen: Soft and nontender. Bowel sounds normal in all 4 quadrants. No distention noted. No organomegaly noted. No visible injury noted. Back: Full range of motion noted. Skin: Skin warm and dry. Normal skin color. Normal skin turgor. No rashes/lesions/lacerations noted. Extremities: Extremities exhibit normal range of motion and nontender. Neuro: Oriented X 3. No motor deficit. No sensory deficit. Reflexes normal. Normal steady gait. No focal neuro deficits noted. CN's II-XII intact bilaterally? Vascular: + radial pulses/+ 2 distal pedal pulses/+2 dorsalis pedis b/l. Normal cap refill. No cyanosis noted to upper extremity nails and lower extremity toes nails. Course Course Course Narrative: 51-year-old male with a past medical history of obesity and asthma currently on albuterol nebulizers at home reports he has not had to use it and COVID in 09/2021 presenting to the ED with complaints of chills, fatigue, malaise, nasal congestion/rhinorrhea, sore throat, sinus pressure pain and a dry cough that started this morning. He reports he is vaccinated to COVID. Patient positive for COVID. No imaging indicated at this time as lungs are clear to auscultation and oxygen is within normal limits at 96% on room air and patient is afebrile. Will obtain a rapid strep. Reevaluation(s) Reevaluation #1: The lab called me back and reported that the patient's rapid strep was ran as a COVID. The lab reported that this was an error on their part. Therefore they instructed us to read swab the patient. I explained to the lab today should send an incident report. Otherwise will swab the patient again for strep. Therefore at this time will DC home with instructions to self isolate per CDC guidelines and to return if any new or worsening symptoms will also provide antivirals due to patient's history of asthma and obesity along with cough medicine. And instructions to monitor his oxygen levels and to return if any new or worsening symptoms and follow up with primary care provider. Patient understands agrees with this plan. Time: 10:26 MDM - URI/Sore Throat Medical Records Attestation: I reviewed the patient's medical records. Lab Data Attestation: I reviewed the patient's lab results. Labs: Lab Results 05/14/22 05/14/22 Range/Units 09:09 10:25 COVID-19 (KRISTEN) Positive A (Negative) COVID-19 Clin Com See Note S. pyogenes GrpA ELIN Negative (Negative) Discharge Plan Discharge Clinical Impression: COVID-19 Patient Disposition: Home, Self-Care Instructions: COVID-19 (Coronavirus Disease 2019) (ED) Additional Instructions: You have pending lab results if your lab results if positive you will be contacted if not your lab results was negative. Please self isolate per CDC guidelines. Return if any new or worsening symptoms. Monitor oxygen levels. Continue taking Motrin and Tylenol every 3 hours if you develop any fevers. Prescriptions: New codeine-guaifenesin [Guaifenesin AC] 10-100 mg/5 mL liquid 5 ml PO Q6H PRN (Reason: cold symptoms) Qty: 120 0RF prednisone 20 mg tablet 40 mg PO DAILY 5 Days Qty: 10 0RF Paxlovid (EUA) 300 mg (150 mg x 2)-100 mg tablets,dose pack See Rx Instructions .ROUTE .COMPLEX Qty: 15 0RF Rx Instructions: take TWO 150 mg tablets of nirmatrelvir with ONE 100 mg tablet of ritonavir twice daily for 5 days. Dip 15 pills No Action prednisone 20 mg tablet 40 mg PO DAILY 5 Days Qty: 10 0RF albuterol sulfate 90 mcg/actuation HFA aerosol inhaler 2 puff inhalation Q4-6H PRN (Reason: shortness of breath or wheezing) Qty: 6.7 0RF albuterol sulfate 2.5 mg/0.5 mL solution for nebulization 5 mg inhalation Q4H PRN (Reason: shortness of breath or wheezing) Qty: 30 0RF prednisone 20 mg tablet 40 mg PO DAILY 5 Days Qty: 10 0RF azithromycin 250 mg tablet See Rx Instructions .ROUTE .COMPLEX Qty: 6 0RF Rx Instructions: For 250 mg dose pack: take 500 mg today (day 1), then 250 mg for 4 days (days 2-5) naproxen 500 mg tablet 500 mg PO BID PRN (Reason: pain) Qty: 10 0RF oxycodone 5 mg tablet 5 mg PO Q6H PRN (Reason: pain) Qty: 14 0RF Rx Instructions: Partial Fill upon patient request. albuterol sulfate 90 mcg/actuation HFA aerosol inhaler 2 puff inhalation Q4H PRN (Reason: wheezing) albuterol sulfate 2.5 mg /3 mL (0.083 %) solution for nebulization inhalation Q4H PRN (Reason: wheezing) Referrals: Renato Ramsay III, MD [Primary Care Provider] - 1 week Interventions: ED Discharge Assessment Last Done: 05/14/22 10:38 Discharge Date/Time: 05/14/22 10:40
--- NOTE | 2022-05-14 10:31 | PC.NURSE ---
pt initally swabbed for covid while in triage, swab[place] for [place] in [facility] [place] lab called to question why we reswabbed pt for covid, pa informed them it was a strep swab, lab stated they ran it as a covid and the pt would have to be re-swabbed, gilda farrell re-swabbed pt
[2022-05-14 10:43] LABS: Strep A Nucleic Acid Negative (Negative)
== END 2022-05-14 10:40 | disposition home or self-care (01) ==
PROVIDERS: Physician Assistant Medical; Emergency Provider Emergency Medicine; PCP Internal Medicine
DX: U07.1 COVID-19 (principal); Z79.899 Other long term (current) drug therapy
CPT/HCPCS: 36415; 87635; 87651; 99283

== ENCOUNTER 2022-12-04 09:45 | Emergency (ER) | payer OTHER, SELFPAY ==
--- NOTE | ~2022-12-04 | XR_ITS ---
EXAMINATION: XR FOOT, RIGHT CLINICAL INFORMATION: Pain COMPARISON: None TECHNIQUE: AP, lateral, and oblique views of the right foot. FINDINGS: The bones and soft tissues are normal. No fracture. Alignment is anatomic. Joint spaces are maintained. Small posterior calcaneal spur. XR/XR foot RT min 3V IMPRESSION: * No fracture. * Small posterior calcaneal spur.
[2022-12-04 09:54] VITALS: BP 155/91; PULSE 98; RESP 18; TEMP 36.1; O2SAT 97; BMI 37.1
--- NOTE | 2022-12-04 10:47 | ED_ITS ---
HPI - Extremity Problem General Chief complaint: Extremity Problem Stated complaint: R foot pain Time Seen by Provider: 12/04/22 10:39 Source: patient Mode of arrival: ambulatory Limitations: no limitations History of Present Illness HPI Narrative: Patient is a 52-year-old male presents emergency department for evaluation of pain to the right posterior heel. Patient states about 5 days ago, after removing his boots after work he felt some mild tingling to his toes on the right foot which is not atypical for him. Three days ago while at rest he noticed increased pain to the posterior ankle particularly over the Achilles tendon region. It is not been getting any better. He denies any particular injury. He was not moving or weight-bearing when this pain had increased. Related Data Home Medications Medication Instructions Recorded Confirmed albuterol sulfate 2.5 mg/3 mL mg inhalation Q4H PRN wheezing 10/16/20 10/16/20 (0.083 %) solution for nebulization albuterol sulfate 90 mcg/actuation 2 puff inhalation Q4H PRN wheezing 10/16/20 10/16/20 aerosol inhaler Previous Rx's Medication Instructions Recorded azithromycin 250 mg tablet See Rx Instructions PO .COMPLEX #6 09/19/21 tabs prednisone 20 mg tablet 40 mg PO DAILY 5 days #10 tabs 09/19/21 albuterol sulfate 2.5 mg/0.5 mL 5 mg inhalation Q4H PRN shortness 12/09/21 solution for nebulization of breath or wheezing #30 ea albuterol sulfate 90 mcg/actuation 2 puff inhalation Q4-6H PRN 12/09/21 aerosol inhaler shortness of breath or wheezing #6.7 grams prednisone 20 mg tablet 40 mg PO DAILY 5 days #10 tabs 12/09/21 naproxen 500 mg tablet 500 mg PO BID PRN pain #10 tabs 04/23/22 oxycodone 5 mg tablet 5 mg PO Q6H PRN pain #14 tabs 04/23/22 codeine 10 mg-guaifenesin 100 mg/5 5 ml PO Q6H PRN cold symptoms #120 05/14/22 mL oral liquid (Guaifenesin AC) mL nirmatrelvir 300 mg (150 mg See Rx Instructions PO .COMPLEX 05/14/22 x2)-ritonavir 100 mg tablet,dose #15 ea pack(EUA) (Paxlovid) prednisone 20 mg tablet 40 mg PO DAILY rash 5 days #10 tabs 05/14/22 naproxen 500 mg tablet 500 mg PO BID PRN pain #20 tabs 12/04/22 Allergies Allergy/AdvReac Type Severity Reaction Status Date / Time No Known Allergies Allergy Verified 10/16/20 14:34 [No Known Allergies*] Review of Systems Review of Systems: Yes all other systems are reviewed and are negative [facility] Past Medical History Attestation statement: The following information was validated with the patient. Source: old records reviewed Medical History Asthma H/O back injury Obesity (BMI 35.0-39.9 without comorbidity) Surgical History Previous back surgery Family History Family History Father AIDS Mother Liver cancer Diabetes mellitus Sister Fibromyalgia Sister No problems noted. Brother Known medical problems Brother Diabetes mellitus Liver problem Daughter No problems noted. Son No problems noted. Son No problems noted. Social History Social History Alcohol intake: never Patient Tobacco Use Status: Never used Tobacco Advance Directives: No Advance Directives Information Provided: Yes Physical Exam Vital Signs: Vital Signs: Last Vital Signs Temp 97 F 12/04/22 09:54 Pulse 98 12/04/22 09:54 Resp 18 12/04/22 09:54 BP 155/91 H 12/04/22 09:54 Pulse Ox 97 12/04/22 09:54 O2 Del Method 12/04/22 09:54 BMI result Body Mass Index 37.1 Appearance: Alert.?Oriented to person, place and time. No acute distress.?Normal affect. Neck: Normal inspection.? Neck supple.?? CVS: Heart sounds normal. Normal heart rate and rhythm.? Pulses normal.?? Respiratory: No respiratory distress.? Lung sounds clear to auscultation bilaterally?? Abdomen: Soft and non-tender. Skin: Skin warm and dry.? Normal skin color.? Extremities: No lower extremity edema. No calf ttp. Tenderness upon palpation above the posterior calcaneus, over the Achilles tendon. Neuro: Moves all extremities spontaneously. Sensation intact bilaterally. No focal neuro deficits. Ambulates with slow antalgic gait. Medical Decision Making Medical Decision Making MDM Narrative: Symptoms at this time was consistent with Achilles tendinopathy, lower suspicion for tendon rupture as there were no sudden force or strenuous activities that provoked the onset of this severe pain. There is no reported pop sensation. Patient has been evaluated in this emergency department in the past 04/23/2023 of the similar symptoms, was found at that time to have a possible partial Achilles tendon rupture, was provided with a boot and advised to follow-up with orthopedics. He states he did not follow-up with anyone, his symptoms resolved after a few days without intervention. At the time of examination he is able to fully plantar flex his foot, mild decrease in dorsiflexion which also provokes worsening pain, there is no palpable deficit in the Achilles tendon, Alvarado test is negative, extremity neurovascularly intact distally. XR imaging does not reveal any acute fracture dislocation, persistent posterior calcaneal spur is present. I discussed this case with ED attending Dr. Jones who agrees with the following plan of care. Patient to be discharged home at this time with treatment for tendinopathy, at this time there is no indication for ultrasound imaging of the Achilles tendon/MRI imaging emergently, he is provided with contact information for the Orthopedic Department associated with [facility] [place], he is to contact their office next week for persistent symptoms, weight-bearing as tolerated, prescription for high-dose anti-inflammatories sent to patient's pharmacy. Differential Diagnosis Differential Diagnoses: The differential diagnosis associated with the presentation includes (As noted above) Independent Interpretation I performed an independent interpretation of an: Plain X-Ray (I personally interpreted XR imaging of the right foot and agree with radiologist impression) Radiology Impression Discussion of test interpretation with radiology: I have reviewed the radiologist's reading. Radiologist Impression: XR/XR foot RT min 3V IMPRESSION: ? *? No fracture. ? *? Small posterior calcaneal spur. Prescription Management I considered prescription management with: Pain Medication Discharge Plan Discharge Clinical Impression: Non-insertional Achilles tendinopathy Patient Disposition: Home, Self-Care Instructions: Achilles Tendinitis (ED) Additional Instructions: As discussed, please be sure to rest over the next few days, elevate your leg when possible, apply ice/heat to the area for 10-15 minutes 4-6 times daily. Take naproxen as prescribed You have been given contact information for Orthopedics to arrange for further follow-up. Additionally you may follow-up with your primary care provider for persistent symptoms You may return back to emergency department with any new or worsening symptoms or concerns. Prescriptions: New naproxen 500 mg tablet 500 mg PO BID PRN (Reason: pain) Qty: 20 0RF No Action prednisone 20 mg tablet 40 mg PO DAILY 5 Days Qty: 10 0RF albuterol sulfate 90 mcg/actuation HFA aerosol inhaler 2 puff inhalation Q4-6H PRN (Reason: shortness of breath or wheezing) Qty: 6.7 0RF albuterol sulfate 2.5 mg/0.5 mL solution for nebulization 5 mg inhalation Q4H PRN (Reason: shortness of breath or wheezing) Qty: 30 0RF prednisone 20 mg tablet 40 mg PO DAILY 5 Days Qty: 10 0RF azithromycin 250 mg tablet See Rx Instructions .ROUTE .COMPLEX Qty: 6 0RF Rx Instructions: For 250 mg dose pack: take 500 mg today (day 1), then 250 mg for 4 days (days 2-5) naproxen 500 mg tablet 500 mg PO BID PRN (Reason: pain) Qty: 10 0RF oxycodone 5 mg tablet 5 mg PO Q6H PRN (Reason: pain) Qty: 14 0RF Rx Instructions: Partial Fill upon patient request. codeine-guaifenesin [Guaifenesin AC] 10-100 mg/5 mL liquid 5 ml PO Q6H PRN (Reason: cold symptoms) Qty: 120 0RF prednisone 20 mg tablet 40 mg PO DAILY 5 Days Qty: 10 0RF Paxlovid (EUA) 300 mg (150 mg x 2)-100 mg tablets,dose pack See Rx Instructions .ROUTE .COMPLEX Qty: 15 0RF Rx Instructions: take TWO 150 mg tablets of nirmatrelvir with ONE 100 mg tablet of ritonavir twice daily for 5 days. Dip 15 pills albuterol sulfate 90 mcg/actuation HFA aerosol inhaler 2 puff inhalation Q4H PRN (Reason: wheezing) albuterol sulfate 2.5 mg /3 mL (0.083 %) solution for nebulization inhalation Q4H PRN (Reason: wheezing) Referrals: Physician,Unknown J [Primary Care Provider] -
== END 2022-12-04 11:28 | disposition home or self-care (01) ==
PROVIDERS: Emergency Provider Emergency Medicine
DX: M76.61 Achilles tendinitis, right leg (principal); M77.31 Calcaneal spur, right foot; M79.671 Pain in right foot
CPT/HCPCS: 73630; 99283

== ENCOUNTER 2022-12-12 11:29 | Emergency (ER) | payer OTHER, SELFPAY ==
--- NOTE | ~2022-12-12 | CT_ITS ---
EXAMINATION: CT CHEST ANGIOGRAM PE PROTOCOL CLINICAL INFORMATION: , Reason for Exam elevated D dimer. Pleurisy? PE? COMPARISON: None TECHNIQUE: Volumetric imaging was performed through the chest. Reformatted coronal and sagittal imaging was performed. 3-D MIP images performed at a dedicated separate workstation. This CT examination was performed using dose optimization techniques as appropriate, variously including the following: *Automated exposure control *Adjustment of mA and/or kV according to patient size (this includes techniques or standardized protocols for targeted exams where dose is matched to indication/reason for exam; i.e. extremities or head) *Use of iterative reconstruction technique CONTRAST: 65 mL of Omnipaque 350 injected DLP: 518 FINDINGS: PULMONARY ARTERIES: Exam limited, suboptimal opacification of the pulmonary artery, there are nonocclusive filling defects in secondary and tertiary branches of the left pulmonary artery to the left upper lobe and left lower lobe concerning for possible small emboli indeterminant age. There are no large central occlusive emboli on either side. No CT evidence of pulmonary hypertension or septal bowing no CT evidence of cardiac strain. LINES/TUBES: None LUNGS: Lung Parenchyma: There is no CT evidence of significant lung parenchymal disease. Lung Nodules:There are no significant lung nodules. AIRWAYS: Trachea and bronchi are normal. PLEURA: No pleural effusion or pneumothorax. MEDIASTINUM AND JATINDER: The visualized thyroid gland is unremarkable. No mediastinal, hilar or axillary lymphadenopathy. There is no mediastinal mass. VESSELS: Thoracic aorta is normal in size. HEART AND PERICARDIUM: Heart is normal in size. There is no pericardial effusion. There are coronary calcifications. CHEST WALL, LOWER NECK, SURROUNDING SOFT TISSUES: Normal VISUALIZED ABDOMEN: Unremarkable BONES: The visualized bony thorax is within normal limits. CT/CT angio chest PE protocol IMPRESSION: * Exam limited, suboptimal opacification of the pulmonary artery, multiple artifacts, there are poorly visualized nonocclusive filling defects in secondary and tertiary branches of the left pulmonary artery to the left upper lobe and left lower lobe concerning for possible small emboli indeterminant age. There are no large central occlusive emboli on either side. No CT evidence of pulmonary hypertension or cardiac strain. * Would recommend correlation with patient's risk factor including possible DVT, initiate treatment, consider follow-up VQ scan or CT angiogram with higher dose of IV contrast in 24 to 48 hours. * Lungs are clear. * There are coronary calcifications.
--- NOTE | ~2022-12-12 | XR_ITS ---
EXAMINATION: XR CHEST CLINICAL INFORMATION: Cough and wheezing COMPARISON: None TECHNIQUE: 2 views of the chest were obtained. FINDINGS: No significant abnormality is noted involving the heart, lungs, mediastinum, bony thorax or soft tissues. XR/XR chest 2V IMPRESSION: Unremarkable chest examination.
[2022-12-12 11:53] VITALS: BP 173/95; PULSE 95; RESP 18; TEMP 37.2; O2SAT 97; BMI 41.3
--- NOTE | 2022-12-12 11:55 | ED.URI ---
HPI - URI/Sore Throat General Chief Complaint: Upper Respiratory Symptoms Stated Complaint: SOB, asthma, hard to breathe Time Seen by Provider: 12/12/22 12:46 Related Data Home Medications Medication Instructions Recorded Confirmed albuterol sulfate 2.5 mg/3 mL mg inhalation Q4H PRN wheezing 10/16/20 10/16/20 (0.083 %) solution for nebulization albuterol sulfate 90 mcg/actuation 2 puff inhalation Q4H PRN wheezing 10/16/20 10/16/20 aerosol inhaler Previous Rx's Medication Instructions Recorded azithromycin 250 mg tablet See Rx Instructions PO .COMPLEX #6 09/19/21 tabs prednisone 20 mg tablet 40 mg PO DAILY 5 days #10 tabs 09/19/21 albuterol sulfate 2.5 mg/0.5 mL 5 mg inhalation Q4H PRN shortness 12/09/21 solution for nebulization of breath or wheezing #30 ea albuterol sulfate 90 mcg/actuation 2 puff inhalation Q4-6H PRN 12/09/21 aerosol inhaler shortness of breath or wheezing #6.7 grams prednisone 20 mg tablet 40 mg PO DAILY 5 days #10 tabs 12/09/21 naproxen 500 mg tablet 500 mg PO BID PRN pain #10 tabs 04/23/22 oxycodone 5 mg tablet 5 mg PO Q6H PRN pain #14 tabs 04/23/22 codeine 10 mg-guaifenesin 100 mg/5 5 ml PO Q6H PRN cold symptoms #120 05/14/22 mL oral liquid (Guaifenesin AC) mL nirmatrelvir 300 mg (150 mg See Rx Instructions PO .COMPLEX 05/14/22 x2)-ritonavir 100 mg tablet,dose #15 ea pack(EUA) (Paxlovid) prednisone 20 mg tablet 40 mg PO DAILY rash 5 days #10 tabs 05/14/22 naproxen 500 mg tablet 500 mg PO BID PRN pain #20 tabs 12/04/22 apixaban 5 mg (74 tabs) tablets in 5 mg PO BID #74 ea 12/12/22 a dose pack (Eliquis DVT-PE Treat 30D Start) prednisone 20 mg tablet 40 mg PO DAILY 5 days #10 tabs 12/12/22 Allergies Allergy/AdvReac Type Severity Reaction Status Date / Time No Known Allergies Allergy Verified 12/12/22 12:01 [No Known Allergies*] [facility] Past Medical History Medical History Asthma H/O back injury Obesity (BMI 35.0-39.9 without comorbidity) Surgical History Previous back surgery Family History Family History Father AIDS Mother Liver cancer Diabetes mellitus Sister Fibromyalgia Sister No problems noted. Brother Known medical problems Brother Diabetes mellitus Liver problem Daughter No problems noted. Son No problems noted. Son No problems noted. Social History Social History Alcohol intake: never Patient Tobacco Use Status: Never used Tobacco Smoked in Last 30 Days: No Advance Directives: No Advance Directives Information Provided: Yes Physical Exam Vital Signs: Vital Signs: Last Vital Signs Temp 98.9 F 12/12/22 11:53 Pulse 95 12/12/22 11:53 Resp 18 12/12/22 11:53 BP 173/95 H 12/12/22 11:53 Pulse Ox 96 12/12/22 12:51 O2 Del Method 12/12/22 12:51 BMI result Body Mass Index 41.3 Course Course Course Narrative: This is a rapid medical exam. Deferred additional HPI, ROS, PE to primary provider. 52yo male with history of asthma, NIDDM here with nasal congestion, cough, chills, wheezing/SOB since Tuesday. Took home COVID test x2 and negative. Using albuterol MDI/albuterol nebulizer with continued symptoms. Will obtain CXR, RSV/flu/covid test. VSS. Medications Administered Discontinued Medications Generic Name Dose Route Start Last Admin Trade Name Freq PRN Reason Stop Dose Admin Iohexol 65 ml 12/12/22 14:35 12/12/22 14:36 Iohexol 350 Mg/Ml 100 Ml Infus..Btl IV 12/12/22 14:36 65 ml ONCE ONE Administration Medical Decision Making Lab Data 12/12/22 13:13 12/12/22 13:13 Labs: Lab Results 03/03/0112/12/22 12/12/22 Range/Units 12:14 13:13 13:13 WBC 6.3 (4.8-10.8) X10*3/uL RBC 5.52 (4.60-5.80) X10*6/uL Hgb 15.2 (14.0-18.0) g/dl Hct 47.6 (42.0-52.0) % MCV 86.2 (80.0-98.0) fL MCH 27.5 (27.0-33.0) pg MCHC 31.9 (31.0-36.0) g/dl RDW 13.5 (11.0-16.0) % Plt Count 249 D (160-400) X10*3/uL MPV 10.1 (9.4-12.4) fL Immature Gran % (Auto) 0.3 (0.0-0.4) % Neut % (Auto) 57.1 (45-73) % Lymph % (Auto) 30.1 (20-40) % [place] % (Auto) 9.4 (2-11) % Eos % (Auto) 2.5 (0-4) % Baso % (Auto) 0.6 (0-2) % Lymph # (Auto) 1.9 (1.2-4.9) X10*3/uL [place] # (Auto) 0.6 (0.1-1.2) X10*3/uL Eos # (Auto) 0.2 (0.0-0.4) X10*3/uL Baso # (Auto) 0.0 (0.0-0.2) X10*3/uL Abs Immat Gran (auto) 0.02 (0.00-0.03) X10*3/uL Absolute Neuts (auto) 3.6 (2.0-8.3) x10*3/uL Absolute Nucleated RBC 0.000 (0.0-0.012) X10*3/uL Nucleated RBC % (auto) 0.0 (0.0-0.2) /100WBC PT 11.2 (10.0-13.1) SEC INR 1.0 (0.9-1.1) APTT 25.3 L (26.0-36.4) SEC D-Dimer High Sensitivty 276 NG/ML Sodium (135-145) mmol/L Potassium (3.3-5.1) mmol/L Chloride (96-108) mmol/L Carbon Dioxide (22-29) mmol/L Anion Gap (12-20) BUN (9-16) mg/dL Creatinine (0.5-1.4) mg/dL Estim Creat Clear Calc Estimated GFR Random Glucose (60-115) mg/dL Calcium (8.4-10.2) mg/dL Total Bilirubin (0.0-1.0) mg/dL AST (5-37) U/L ALT (0-40) U/L Alkaline Phosphatase (39-117) U/L Troponin I High Sens (<3.5-35.0) ng/L B-Natriuretic Peptide (<100) pg/mL Total Protein (6.5-8.0) g/dL Albumin (3.5-5.0) g/dL Influenza Type A (PCR) NEGATIVE (Negative) Influenza Type B (PCR) NEGATIVE (Negative) RSV RNA Qual (PCR) NEGATIVE (Negative) SARS-CoV-2 RNA (RT-PCR) NEGATIVE (Negative) S. pyogenes GrpA ELIN (Negative) 12/12/22 12/12/22 12/12/22 Range/Units 13:13 13:13 13:13 WBC (4.8-10.8) X10*3/uL RBC (4.60-5.80) X10*6/uL Hgb (14.0-18.0) g/dl Hct (42.0-52.0) % MCV (80.0-98.0) fL MCH (27.0-33.0) pg MCHC (31.0-36.0) g/dl RDW (11.0-16.0) % Plt Count (160-400) X10*3/uL MPV (9.4-12.4) fL Immature Gran % (Auto) (0.0-0.4) % Neut % (Auto) (45-73) % Lymph % (Auto) (20-40) % [place] % (Auto) (2-11) % Eos % (Auto) (0-4) % Baso % (Auto) (0-2) % Lymph # (Auto) (1.2-4.9) X10*3/uL [place] # (Auto) (0.1-1.2) X10*3/uL Eos # (Auto) (0.0-0.4) X10*3/uL Baso # (Auto) (0.0-0.2) X10*3/uL Abs Immat Gran (auto) (0.00-0.03) X10*3/uL Absolute Neuts (auto) (2.0-8.3) x10*3/uL Absolute Nucleated RBC (0.0-0.012) X10*3/uL Nucleated RBC % (auto) (0.0-0.2) /100WBC PT (10.0-13.1) SEC INR (0.9-1.1) APTT (26.0-36.4) SEC D-Dimer High Sensitivty NG/ML Sodium 143 (135-145) mmol/L Potassium 4.0 (3.3-5.1) mmol/L Chloride 106 (96-108) mmol/L Carbon Dioxide 27 (22-29) mmol/L Anion Gap 14 (12-20) BUN 14 (9-16) mg/dL Creatinine 1.12 (0.5-1.4) mg/dL Estim Creat Clear Calc 113.7 Estimated GFR > 60 Random Glucose 126 H (60-115) mg/dL Calcium 9.5 (8.4-10.2) mg/dL Total Bilirubin 0.8 (0.0-1.0) mg/dL AST 74 H (5-37) U/L ALT 136 H (0-40) U/L Alkaline Phosphatase 64 (39-117) U/L Troponin I High Sens 5.1 (<3.5-35.0) ng/L B-Natriuretic Peptide < 10 (<100) pg/mL Total Protein 7.0 (6.5-8.0) g/dL Albumin 4.4 (3.5-5.0) g/dL Influenza Type A (PCR) (Negative) Influenza Type B (PCR) (Negative) RSV RNA Qual (PCR) (Negative) SARS-CoV-2 RNA (RT-PCR) (Negative) S. pyogenes GrpA ELIN (Negative) 12/12/22 12/12/22 Range/Units 13:37 16:17 WBC (4.8-10.8) X10*3/uL RBC (4.60-5.80) X10*6/uL Hgb (14.0-18.0) g/dl Hct (42.0-52.0) % MCV (80.0-98.0) fL MCH (27.0-33.0) pg MCHC (31.0-36.0) g/dl RDW (11.0-16.0) % Plt Count (160-400) X10*3/uL MPV (9.4-12.4) fL Immature Gran % (Auto) (0.0-0.4) % Neut % (Auto) (45-73) % Lymph % (Auto) (20-40) % [place] % (Auto) (2-11) % Eos % (Auto) (0-4) % Baso % (Auto) (0-2) % Lymph # (Auto) (1.2-4.9) X10*3/uL [place] # (Auto) (0.1-1.2) X10*3/uL Eos # (Auto) (0.0-0.4) X10*3/uL Baso # (Auto) (0.0-0.2) X10*3/uL Abs Immat Gran (auto) (0.00-0.03) X10*3/uL Absolute Neuts (auto) (2.0-8.3) x10*3/uL Absolute Nucleated RBC (0.0-0.012) X10*3/uL Nucleated RBC % (auto) (0.0-0.2) /100WBC PT (10.0-13.1) SEC INR (0.9-1.1) APTT (26.0-36.4) SEC D-Dimer High Sensitivty NG/ML Sodium (135-145) mmol/L Potassium (3.3-5.1) mmol/L Chloride (96-108) mmol/L Carbon Dioxide (22-29) mmol/L Anion Gap (12-20) BUN (9-16) mg/dL Creatinine (0.5-1.4) mg/dL Estim Creat Clear Calc Estimated GFR Random Glucose (60-115) mg/dL Calcium (8.4-10.2) mg/dL Total Bilirubin (0.0-1.0) mg/dL AST (5-37) U/L ALT (0-40) U/L Alkaline Phosphatase (39-117) U/L Troponin I High Sens 6.1 (<3.5-35.0) ng/L B-Natriuretic Peptide (<100) pg/mL Total Protein (6.5-8.0) g/dL Albumin (3.5-5.0) g/dL Influenza Type A (PCR) (Negative) Influenza Type B (PCR) (Negative) RSV RNA Qual (PCR) (Negative) SARS-CoV-2 RNA (RT-PCR) (Negative) S. pyogenes GrpA ELIN Negative (Negative) Discharge Plan Discharge Clinical Impression: Pulmonary embolism, Asthma Patient Disposition: Home, Self-Care Instructions: Asthma (ED), Blood Thinners (ED) Additional Instructions: Do EKG and blood work came back negative for heart attack. CT scan of chest showed possible small blood clot in your lung. Since you do not want to stay for ventilation perfusion scan you will have to be discharged with blood thinners. You will be discharged with Eliquis and begin to take today. UA given copy of the CT scan results please call your primary care provider tomorrow. You also be discharged with prednisone for the asthma. Continue taking albuterol nebulizer at home. Return to ED for worsening chest pain on inspiration, chest pain/shortness of breath on exertion, leg swelling, calf pain, coughing up blood, rectal bleeding, fever, chills, bloody urine, or any other concerning symptoms. Please call your primary care provider for follow-up very important. Show your PCP the copy of the Chest CTA results. DO no take any other NSIADS with eliquis. No motrin, alleve, naproxen, ibuprofen, or any othe NSAID. Prescriptions: New Eliquis DVT-PE Treat 30D Start 5 mg (74 tabs) tablets,dose pack 5 mg PO BID Qty: 74 0RF Rx Instructions: Recommend 10 mg twice daily for 7 days and then 5 mg twice daily. prednisone 20 mg tablet 40 mg PO DAILY 5 Days Qty: 10 0RF No Action prednisone 20 mg tablet 40 mg PO DAILY 5 Days Qty: 10 0RF albuterol sulfate 90 mcg/actuation HFA aerosol inhaler 2 puff inhalation Q4-6H PRN (Reason: shortness of breath or wheezing) Qty: 6.7 0RF albuterol sulfate 2.5 mg/0.5 mL solution for nebulization 5 mg inhalation Q4H PRN (Reason: shortness of breath or wheezing) Qty: 30 0RF prednisone 20 mg tablet 40 mg PO DAILY 5 Days Qty: 10 0RF azithromycin 250 mg tablet See Rx Instructions .ROUTE .COMPLEX Qty: 6 0RF Rx Instructions: For 250 mg dose pack: take 500 mg today (day 1), then 250 mg for 4 days (days 2-5) naproxen 500 mg tablet 500 mg PO BID PRN (Reason: pain) Qty: 10 0RF oxycodone 5 mg tablet 5 mg PO Q6H PRN (Reason: pain) Qty: 14 0RF Rx Instructions: Partial Fill upon patient request. codeine-guaifenesin [Guaifenesin AC] 10-100 mg/5 mL liquid 5 ml PO Q6H PRN (Reason: cold symptoms) Qty: 120 0RF prednisone 20 mg tablet 40 mg PO DAILY 5 Days Qty: 10 0RF Paxlovid (EUA) 300 mg (150 mg x 2)-100 mg tablets,dose pack See Rx Instructions .ROUTE .COMPLEX Qty: 15 0RF Rx Instructions: take TWO 150 mg tablets of nirmatrelvir with ONE 100 mg tablet of ritonavir twice daily for 5 days. Dip 15 pills naproxen 500 mg tablet 500 mg PO BID PRN (Reason: pain) Qty: 20 0RF albuterol sulfate 90 mcg/actuation HFA aerosol inhaler 2 puff inhalation Q4H PRN (Reason: wheezing) albuterol sulfate 2.5 mg /3 mL (0.083 %) solution for nebulization inhalation Q4H PRN (Reason: wheezing) Stand Alone Forms: Work/School Release Interventions: ED Discharge Assessment Last Done: 12/12/22 17:53 Discharge Date/Time: 12/12/22 17:53 Print Language: [place]ic
[2022-12-12 12:51] VITALS: O2SAT 96
--- NOTE | 2022-12-12 13:00 | ECG_ITS ---
Test Reason : PLEURISY Blood Pressure : / mmHG Vent. Rate : 081 BPM Atrial Rate : 081 BPM P-R Int : 178 ms QRS Dur : 112 ms QT Int : 340 ms P-R-T Axes : 050 031 022 degrees QTc Int : 394 ms Normal sinus rhythm Normal ECG When compared with ECG of 09-DEC-2021 15:14, No significant change was found Referred By: Joe Bah Electronically Signed By:LAURENCE HAYES
[2022-12-12 13:05] LABS: Influenza A PCR NEGATIVE (Negative); Influenza B PCR NEGATIVE (Negative); Resp Syncy Virus RNA Qual PCR NEGATIVE (Negative); SARS COV2 PCR INHOUSE NEGATIVE (Negative)
[2022-12-12 13:17] LABS: MANUAL DIFF FLAG NO
[2022-12-12 13:19] LABS: Basophils Percent Auto 0.6 % (0-2); Eosinophils Absolute Auto 0.2 X10*3/uL (0.0-0.4); Eosinophils Percent Auto 2.5 % (0-4); Hematocrit 47.6 % (42.0-52.0); Hemoglobin 15.2 g/dl (14.0-18.0); Imm Gran Abs Auto 0.02 X10*3/uL (0.00-0.03); Imm Gran Pct Auto 0.3 % (0.0-0.4); Lymphocytes Absolute Auto 1.9 X10*3/uL (1.2-4.9); Lymphocytes Percent Auto 30.1 % (20-40); Mean Corpuscular HGB Conc 31.9 g/dl (31.0-36.0); Mean Corpuscular Hemoglobin 27.5 pg (27.0-33.0); Mean Corpuscular Volume 86.2 fL (80.0-98.0); Mean Platelet Volume 10.1 fL (9.4-12.4); Monocytes Absolute Auto 0.6 X10*3/uL (0.1-1.2); Monocytes Percent Auto 9.4 % (2-11); Neutrophils Absolute Auto 3.6 x10*3/uL (2.0-8.3); Neutrophils Percent Auto 57.1 % (45-73); Platelet Count 249 X10*3/uL (160-400); Red Blood Count 5.52 X10*6/uL (4.60-5.80); Red Cell Distribution Width 13.5 % (11.0-16.0); White Blood Count 6.3 X10*3/uL (4.8-10.8)
[2022-12-12 13:24] LABS: Prothrombin Time 11.2 SEC (10.0-13.1)
[2022-12-12 13:26] LABS: D Dimer High Sensitivity 276 NG/ML
[2022-12-12 13:27] LABS: Partial Thromboplastin Time 25.3 SEC (26.0-36.4)
--- NOTE | 2022-12-12 13:29 | ED.GENADULT ---
HPI - General Adult General Chief complaint: Upper Respiratory Symptoms Stated complaint: SOB, asthma, hard to breathe Time Seen by Provider: 12/12/22 12:46 Source: patient Mode of arrival: ambulatory Limitations: no limitations History of Present Illness HPI narrative: 52-year-old male with history of asthma presents to ED for coughing, shortness of breath, sore throat and pleurisy for the past 3 days. patient denies any lower extremity swelling, pitting edema, calf pain, or coughing up blood. Patient believes his asthma acting up Related Data Home Medications Medication Instructions Recorded Confirmed albuterol sulfate 2.5 mg/3 mL mg inhalation Q4H PRN wheezing 10/16/20 10/16/20 (0.083 %) solution for nebulization albuterol sulfate 90 mcg/actuation 2 puff inhalation Q4H PRN wheezing 10/16/20 10/16/20 aerosol inhaler Previous Rx's Medication Instructions Recorded azithromycin 250 mg tablet See Rx Instructions PO .COMPLEX #6 09/19/21 tabs prednisone 20 mg tablet 40 mg PO DAILY 5 days #10 tabs 09/19/21 albuterol sulfate 2.5 mg/0.5 mL 5 mg inhalation Q4H PRN shortness 12/09/21 solution for nebulization of breath or wheezing #30 ea albuterol sulfate 90 mcg/actuation 2 puff inhalation Q4-6H PRN 12/09/21 aerosol inhaler shortness of breath or wheezing #6.7 grams prednisone 20 mg tablet 40 mg PO DAILY 5 days #10 tabs 12/09/21 naproxen 500 mg tablet 500 mg PO BID PRN pain #10 tabs 04/23/22 oxycodone 5 mg tablet 5 mg PO Q6H PRN pain #14 tabs 04/23/22 codeine 10 mg-guaifenesin 100 mg/5 5 ml PO Q6H PRN cold symptoms #120 05/14/22 mL oral liquid (Guaifenesin AC) mL nirmatrelvir 300 mg (150 mg See Rx Instructions PO .COMPLEX 05/14/22 x2)-ritonavir 100 mg tablet,dose #15 ea pack(EUA) (Paxlovid) prednisone 20 mg tablet 40 mg PO DAILY rash 5 days #10 tabs 05/14/22 naproxen 500 mg tablet 500 mg PO BID PRN pain #20 tabs 12/04/22 apixaban 5 mg (74 tabs) tablets in 5 mg PO BID #74 ea 12/12/22 a dose pack (Eliquis DVT-PE Treat 30D Start) prednisone 20 mg tablet 40 mg PO DAILY 5 days #10 tabs 12/12/22 Allergies Allergy/AdvReac Type Severity Reaction Status Date / Time No Known Allergies Allergy Verified 12/12/22 12:01 [No Known Allergies*] Review of Systems Review of Systems: COugh, chest pain, and pleurisy. Yes all other systems are reviewed and are negative COUNTS INCLUDE 234 BEDS AT THE [facility] Past Medical History Medical History Asthma H/O back injury Obesity (BMI 35.0-39.9 without comorbidity) Surgical History Previous back surgery Family History Family History Father AIDS Mother Liver cancer Diabetes mellitus Sister Fibromyalgia Sister No problems noted. Brother Known medical problems Brother Diabetes mellitus Liver problem Daughter No problems noted. Son No problems noted. Son No problems noted. Social History Social History Alcohol intake: never Patient Tobacco Use Status: Never used Tobacco Smoked in Last 30 Days: No Advance Directives: No Advance Directives Information Provided: Yes Physical Exam ED Vital Signs: Vital Signs - 24 hr 12/12/22 11:53 12/12/22 12:51 Temperature 98.9 F Pulse Rate 95 Respiratory Rate 18 Blood Pressure 173/95 H Pulse Oximetry 97 96 Oxygen Delivery Method Room Air Room Air BMI result Body Mass Index 41.3 Const General: cooperative, healthy appearing, comfortable, no acute distress, well developed, alert, awake and Physically active Orientation/consciousness: oriented to person, oriented to place, oriented to time and patient oriented x3 HENMT Head: Yes normal to inspection, Yes No palpable skull fracture present, Yes normocephalic, Yes atraumatic and No abrasion Eyes General: appearance normal, both eyes and all related structures Neck Neck: Yes normal visual inspection, Yes full ROM, Yes no lymphadenopathy, Yes no meningeal signs, Yes trachea midline, Yes supple, No anterior neck swelling and No tender Chest Chest palpation & inspection: normal inspection of the chest and normal palpation of entire chest wall Resp Effort & Inspection: normal respiratory effort and able to speak in complete sentences Auscultation: clear to auscultation bilaterally Cardio Jugular venous distension: no JVD Heart sounds: S1 normal heart sound present and S2 normal heart sound present GI Inspection: Yes normal to inspection and No abdominal wall ecchymosis Palpation (GI): Soft to palpation, not firm, nontender, no guarding and not rigid General: No CVA tenderness and Yes no CVA tenderness Back/Spine/Pelvis Back: no CVA tenderness, No CVA tenderness and No back tenderness Skin General skin exam: no rashes or lesions noted and elasticity normal Neuro General: oriented to person, oriented to place, oriented to time, patient oriented x3, gait normal, tone normal, moves all extremities, Normal light touch and pain sensation and no meningeal signs Extrem Other: bilateral lower extremities negative for swelling, pitting edmea, or calf tenderness. General: Yes normal to inspection and Yes full ROM Psych Appearance: grossly normal, well kempt and not disheveled Course Course Course Narrative: 52 yold male with coughing and plueirsy. Due to pleurisy, labs, EKG, and D dimer ordered Reevaluation(s) Reevaluation #1: D dimer elevated. EKG negative for STEMI. First troponin slightly elevated at 5.1. Reevaluation #2: Patient's chest CTA report had report of possible small emboli/blood clot withh unknown age and may need Blood thinners.. Radiologist recommend V/Q scan or follow-up CT scan in 24 hours with IV contrast. This was discussed with patient who refused to wait for chest CTA, does not want admission and preferred to be started on a blood thinner. This was discussed with Dr. Boateng who agrees patient should be started on blood thinners if patient does not want repeat imaging or admission. Patient given copy of CAT scan chest CTA results for follow-up with this his primary care provider tomorrow. Second troponing negative. patient informed to begin taking his eliquis prescription today. patient informed not to take any NSAIDS while taking eliquis. patient given copy of Chest CTA. Time: 16:39 Medications Administered Discontinued Medications Generic Name Dose Route Start Last Admin Trade Name Freq PRN Reason Stop Dose Admin Iohexol 65 ml 12/12/22 14:35 12/12/22 14:36 Iohexol 350 Mg/Ml 100 Ml Infus..Btl IV 12/12/22 14:36 65 ml ONCE ONE Administration Medical Decision Making Medical Decision Making [facility] Narrative: 52 old male history of asthma presents to ED for coughing, shortness of breath, and pleurisy. EKG negative STEMI. D-dimer positive. Chest CTA positive for possible small PE of unknown age as per radiologist. Patient refuses V/Q scan. Patient will be started on blood thinner. Lower extremities negative for calf pain, swelling, or pitting edema. Chest x-ray negative pneumonia Differential Diagnosis Differential Diagnoses: The differential diagnosis associated with the presentation includes (PE, pneumonia, asthma, CHF, MT,) Admission/Observation Consideration of admission/observation: Escalation of care including admission/observation considered Lab Data [facility] Lab Attestation statement: I reviewed the patient's lab results. 12/12/22 13:13 12/12/22 13:13 Labs: Lab Results 12/12/22 12/12/22 12/12/22 Range/Units 12:14 13:13 13:13 WBC 6.3 (4.8-10.8) X10*3/uL RBC 5.52 (4.60-5.80) X10*6/uL Hgb 15.2 (14.0-18.0) g/dl Hct 47.6 (42.0-52.0) % MCV 86.2 (80.0-98.0) fL MCH 27.5 (27.0-33.0) pg MCHC 31.9 (31.0-36.0) g/dl RDW 13.5 (11.0-16.0) % Plt Count 249 D (160-400) X10*3/uL MPV 10.1 (9.4-12.4) fL Immature Gran % (Auto) 0.3 (0.0-0.4) % Neut % (Auto) 57.1 (45-73) % Lymph % (Auto) 30.1 (20-40) % [place] % (Auto) 9.4 (2-11) % Eos % (Auto) 2.5 (0-4) % Baso % (Auto) 0.6 (0-2) % Lymph # (Auto) 1.9 (1.2-4.9) X10*3/uL [place] # (Auto) 0.6 (0.1-1.2) X10*3/uL Eos # (Auto) 0.2 (0.0-0.4) X10*3/uL Baso # (Auto) 0.0 (0.0-0.2) X10*3/uL Abs Immat Gran (auto) 0.02 (0.00-0.03) X10*3/uL Absolute Neuts (auto) 3.6 (2.0-8.3) x10*3/uL Absolute Nucleated RBC 0.000 (0.0-0.012) X10*3/uL Nucleated RBC % (auto) 0.0 (0.0-0.2) /100WBC PT 11.2 (10.0-13.1) SEC INR 1.0 (0.9-1.1) APTT 25.3 L (26.0-36.4) SEC D-Dimer High Sensitivty 276 NG/ML Sodium (135-145) mmol/L Potassium (3.3-5.1) mmol/L Chloride (96-108) mmol/L Carbon Dioxide (22-29) mmol/L Anion Gap (12-20) BUN (9-16) mg/dL Creatinine (0.5-1.4) mg/dL Estim Creat Clear Calc Estimated GFR Random Glucose (60-115) mg/dL Calcium (8.4-10.2) mg/dL Total Bilirubin (0.0-1.0) mg/dL AST (5-37) U/L ALT (0-40) U/L Alkaline Phosphatase (39-117) U/L Troponin I High Sens (<3.5-35.0) ng/L B-Natriuretic Peptide (<100) pg/mL Total Protein (6.5-8.0) g/dL Albumin (3.5-5.0) g/dL Influenza Type A (PCR) NEGATIVE (Negative) Influenza Type B (PCR) NEGATIVE (Negative) RSV RNA Qual (PCR) NEGATIVE (Negative) SARS-CoV-2 RNA (RT-PCR) NEGATIVE (Negative) S. pyogenes GrpA ELIN (Negative) 12/12/22 12/12/22 12/12/22 Range/Units 13:13 13:13 13:13 WBC (4.8-10.8) X10*3/uL RBC (4.60-5.80) X10*6/uL Hgb (14.0-18.0) g/dl Hct (42.0-52.0) % MCV (80.0-98.0) fL MCH (27.0-33.0) pg MCHC (31.0-36.0) g/dl RDW (11.0-16.0) % Plt Count (160-400) X10*3/uL MPV (9.4-12.4) fL Immature Gran % (Auto) (0.0-0.4) % Neut % (Auto) (45-73) % Lymph % (Auto) (20-40) % [place] % (Auto) (2-11) % Eos % (Auto) (0-4) % Baso % (Auto) (0-2) % Lymph # (Auto) (1.2-4.9) X10*3/uL [place] # (Auto) (0.1-1.2) X10*3/uL Eos # (Auto) (0.0-0.4) X10*3/uL Baso # (Auto) (0.0-0.2) X10*3/uL Abs Immat Gran (auto) (0.00-0.03) X10*3/uL Absolute Neuts (auto) (2.0-8.3) x10*3/uL Absolute Nucleated RBC (0.0-0.012) X10*3/uL Nucleated RBC % (auto) (0.0-0.2) /100WBC PT (10.0-13.1) SEC INR (0.9-1.1) APTT (26.0-36.4) SEC D-Dimer High Sensitivty NG/ML Sodium 143 (135-145) mmol/L Potassium 4.0 (3.3-5.1) mmol/L Chloride 106 (96-108) mmol/L Carbon Dioxide 27 (22-29) mmol/L Anion Gap 14 (12-20) BUN 14 (9-16) mg/dL Creatinine 1.12 (0.5-1.4) mg/dL Estim Creat Clear Calc 113.7 Estimated GFR > 60 Random Glucose 126 H (60-115) mg/dL Calcium 9.5 (8.4-10.2) mg/dL Total Bilirubin 0.8 (0.0-1.0) mg/dL AST 74 H (5-37) U/L ALT 136 H (0-40) U/L Alkaline Phosphatase 64 (39-117) U/L Troponin I High Sens 5.1 (<3.5-35.0) ng/L B-Natriuretic Peptide < 10 (<100) pg/mL Total Protein 7.0 (6.5-8.0) g/dL Albumin 4.4 (3.5-5.0) g/dL Influenza Type A (PCR) (Negative) Influenza Type B (PCR) (Negative) RSV RNA Qual (PCR) (Negative) SARS-CoV-2 RNA (RT-PCR) (Negative) S. pyogenes GrpA ELIN (Negative) 12/12/22 12/12/22 Range/Units 13:37 16:17 WBC (4.8-10.8) X10*3/uL RBC (4.60-5.80) X10*6/uL Hgb (14.0-18.0) g/dl Hct (42.0-52.0) % MCV (80.0-98.0) fL MCH (27.0-33.0) pg MCHC (31.0-36.0) g/dl RDW (11.0-16.0) % Plt Count (160-400) X10*3/uL MPV (9.4-12.4) fL Immature Gran % (Auto) (0.0-0.4) % Neut % (Auto) (45-73) % Lymph % (Auto) (20-40) % [place] % (Auto) (2-11) % Eos % (Auto) (0-4) % Baso % (Auto) (0-2) % Lymph # (Auto) (1.2-4.9) X10*3/uL [place] # (Auto) (0.1-1.2) X10*3/uL Eos # (Auto) (0.0-0.4) X10*3/uL Baso # (Auto) (0.0-0.2) X10*3/uL Abs Immat Gran (auto) (0.00-0.03) X10*3/uL Absolute Neuts (auto) (2.0-8.3) x10*3/uL Absolute Nucleated RBC (0.0-0.012) X10*3/uL Nucleated RBC % (auto) (0.0-0.2) /100WBC PT (10.0-13.1) SEC INR (0.9-1.1) APTT (26.0-36.4) SEC D-Dimer High Sensitivty NG/ML Sodium (135-145) mmol/L Potassium (3.3-5.1) mmol/L Chloride (96-108) mmol/L Carbon Dioxide (22-29) mmol/L Anion Gap (12-20) BUN (9-16) mg/dL Creatinine (0.5-1.4) mg/dL Estim Creat Clear Calc Estimated GFR Random Glucose (60-115) mg/dL Calcium (8.4-10.2) mg/dL Total Bilirubin (0.0-1.0) mg/dL AST (5-37) U/L ALT (0-40) U/L Alkaline Phosphatase (39-117) U/L Troponin I High Sens 6.1 (<3.5-35.0) ng/L B-Natriuretic Peptide (<100) pg/mL Total Protein (6.5-8.0) g/dL Albumin (3.5-5.0) g/dL Influenza Type A (PCR) (Negative) Influenza Type B (PCR) (Negative) RSV RNA Qual (PCR) (Negative) SARS-CoV-2 RNA (RT-PCR) (Negative) S. pyogenes GrpA ELIN Negative (Negative) Independent Interpretation I performed an independent interpretation of an: EKG (Normal sinus rhythm reticular rate 81. Pr interval 178. QRS 112. QTC 394. Negative STEMI), Plain X-Ray and CT Scan Radiology Impression Discussion of test interpretation with radiology: I have reviewed the radiologist's reading. Prescription Management I considered prescription management with: Other (Eliquis) Discharge Plan Discharge Clinical Impression: Pulmonary embolism, Asthma Patient Disposition: Home, Self-Care Instructions: Asthma (ED), Blood Thinners (ED) Additional Instructions: Do EKG and blood work came back negative for heart attack. CT scan of chest showed possible small blood clot in your lung. Since you do not want to stay for ventilation perfusion scan you will have to be discharged with blood thinners. You will be discharged with Eliquis and begin to take today. UA given copy of the CT scan results please call your primary care provider tomorrow. You also be discharged with prednisone for the asthma. Continue taking albuterol nebulizer at home. Return to ED for worsening chest pain on inspiration, chest pain/shortness of breath on exertion, leg swelling, calf pain, coughing up blood, rectal bleeding, fever, chills, bloody urine, or any other concerning symptoms. Please call your primary care provider for follow-up very important. Show your PCP the copy of the Chest CTA results. DO no take any other NSIADS with eliquis. No motrin, alleve, naproxen, ibuprofen, or any othe NSAID. Prescriptions: New Eliquis DVT-PE Treat 30D Start 5 mg (74 tabs) tablets,dose pack 5 mg PO BID Qty: 74 0RF Rx Instructions: Recommend 10 mg twice daily for 7 days and then 5 mg twice daily. prednisone 20 mg tablet 40 mg PO DAILY 5 Days Qty: 10 0RF No Action prednisone 20 mg tablet 40 mg PO DAILY 5 Days Qty: 10 0RF albuterol sulfate 90 mcg/actuation HFA aerosol inhaler 2 puff inhalation Q4-6H PRN (Reason: shortness of breath or wheezing) Qty: 6.7 0RF albuterol sulfate 2.5 mg/0.5 mL solution for nebulization 5 mg inhalation Q4H PRN (Reason: shortness of breath or wheezing) Qty: 30 0RF prednisone 20 mg tablet 40 mg PO DAILY 5 Days Qty: 10 0RF azithromycin 250 mg tablet See Rx Instructions .ROUTE .COMPLEX Qty: 6 0RF Rx Instructions: For 250 mg dose pack: take 500 mg today (day 1), then 250 mg for 4 days (days 2-5) naproxen 500 mg tablet 500 mg PO BID PRN (Reason: pain) Qty: 10 0RF oxycodone 5 mg tablet 5 mg PO Q6H PRN (Reason: pain) Qty: 14 0RF Rx Instructions: Partial Fill upon patient request. codeine-guaifenesin [Guaifenesin AC] 10-100 mg/5 mL liquid 5 ml PO Q6H PRN (Reason: cold symptoms) Qty: 120 0RF prednisone 20 mg tablet 40 mg PO DAILY 5 Days Qty: 10 0RF Paxlovid (EUA) 300 mg (150 mg x 2)-100 mg tablets,dose pack See Rx Instructions .ROUTE .COMPLEX Qty: 15 0RF Rx Instructions: take TWO 150 mg tablets of nirmatrelvir with ONE 100 mg tablet of ritonavir twice daily for 5 days. Dip 15 pills naproxen 500 mg tablet 500 mg PO BID PRN (Reason: pain) Qty: 20 0RF albuterol sulfate 90 mcg/actuation HFA aerosol inhaler 2 puff inhalation Q4H PRN (Reason: wheezing) albuterol sulfate 2.5 mg /3 mL (0.083 %) solution for nebulization inhalation Q4H PRN (Reason: wheezing) Stand Alone Forms: Work/School Release Interventions: ED Discharge Assessment Last Done: 12/12/22 17:53 Discharge Date/Time: 12/12/22 17:53 Print Language: [place]ovan
[2022-12-12 13:48] LABS: IDNOW Serial# 6674DD1D; Strep A Nucleic Acid Negative (Negative)
[2022-12-12 13:52] LABS: Alanine Aminotransferase 136 U/L (0-40); Albumin Level 4.4 g/dL (3.5-5.0); Alkaline Phosphatase 64 U/L (39-117); Anion Gap 14 (12-20); Aspartate Amino Transferase 74 U/L (5-37); Bilirubin Total 0.8 mg/dL (0.0-1.0); Blood Urea Nitrogen 14 mg/dL (9-16); Calcium 9.5 mg/dL (8.4-10.2); Carbon Dioxide 27 mmol/L (22-29); Chloride 106 mmol/L (96-108); Creatinine Clr Calc Pharmacy 113.7; Estimated Glomerular Filt Rate > 60; Glucose Random 126 mg/dL (60-115); Sodium 143 mmol/L (135-145); Troponin-I High Sensitivity 5.1 ng/L (<3.5-35.0)
[2022-12-12 14:36] LABS: B Type Natriuretic Peptide < 10 pg/mL (<100)
[2022-12-12] MEDS: iohexoL 350 MG/ML 100 ML INFUS..BTL 65 ML IV (14:36)
[2022-12-12 16:52] LABS: Troponin-I High Sensitivity 6.1 ng/L (<3.5-35.0)
== END 2022-12-12 17:53 | disposition home or self-care (01) ==
PROVIDERS: Nurse Practitioner Family; Physician Assistant; Emergency Provider Emergency Medicine
DX: I26.99 Other pulmonary embolism without acute cor pulmonale (principal); J45.909 Unspecified asthma, uncomplicated; R06.02 Shortness of breath; Z20.828 Contact with and (suspected) exposure to other viral communicable diseases; Z20.822 Contact with and (suspected) exposure to COVID-19; Z79.899 Other long term (current) drug therapy
CPT/HCPCS: 0241U; 36415; 71046; 71275; 80053; 83880; 84484; 85025; 85379; 85610; 85730; 87651; 93005; 99284; Q9967